=== PATIENT | female | born 1955 | race Caucasian/White ===

== ENCOUNTER → 2025-06-15 07:55 | Outpatient (REF) | payer MEDICARE, SELFPAY | LOC: WOUND 07:55 | PROVIDERS: ATTENDING PHYSICIAN Surgery; FAMILY PHYSICIAN Internal Medicine | DX: L97.312 Non-pressure chronic ulcer of right ankle with fat layer exposed (principal); L97.512 Non-pressure chronic ulcer of other part of right foot with fat layer exposed; L89.622 Pressure ulcer of left heel, stage 2; D75.89 Other specified diseases of blood and blood-forming organs; D47.3 Essential (hemorrhagic) thrombocythemia; I10 Essential (primary) hypertension; I73.9 Peripheral vascular disease, unspecified; I87.2 Venous insufficiency (chronic) (peripheral); Z86.73 Personal history of transient ischemic attack (TIA), and cerebral infarction without residual deficits; Z79.64 Long term (current) use of myelosuppressive agent | CPT/HCPCS: 99204 ==

== ENCOUNTER 2025-07-29 14:31 | Inpatient (IN) | payer MEDICARE, SELFPAY ==
[2025-07-29] VITALS (14 sets, daily range): BP systolic 90–122; BP diastolic 45–62; BMI 30.4
[2025-07-29] MEDS: LR 1000 IV (12:35)
--- NOTE | 2025-07-29 12:54 | ED.GENMED ---
History of Present Illness
General
Chief Complaint: Weakness
Time Seen by Provider: 07/29/25 12:08
History of Present Illness
History of Present Illness:
70-year-old female presents to the emergency department for evaluation of generalized weakness. She states that after developing a significant right lower leg ulcerated wound as a result of taking hydroxyurea, she was taking 'large amounts' of
ibuprofen to manage her pain. She states she was taking at least 600 mg every 4 hours for several weeks or more than 1 month. She also notes dark stools today. Denies any recent fevers or night sweats. She saw wound care on 1 occasion for the
ulcerated wound but declined follow-up thereafter. Denies abdominal pain, nausea, or vomiting.
Past History
Past History
ED Past Medical History: None
Social History
Tobacco: Non-smoker
Alcohol: None
Review of Systems
Review of Systems
Allergies reviewed?: Yes
All Other Systems: ROS reviewed and negative except as documented in HPI and ROS
Phy Exam
Physical Exam
Physical Exam:
GEN: Generally pale, no immediate distress
HEENT: Oral mucosa moist, no scleral icterus
Cardiac: Tachycardic, regular; high pitched systolic murmur heard throughout
Lung: No respiratory distress, no tachypnea, lungs clear to auscultation
Abdomen: Soft, grossly nontender
MSK: No gross deformity or injuries
Skin: Generally pale, no jaundice. Large circumferential ulceration with purulent discharge and malodor to the right lower leg extending toward the heel
Neuro: AO x3, moves all extremities freely
Psych: Calm, cooperative
Course
Orders/Labs/Results
Orders:
Orders
07/29/25
Electrocardiogram (*1) Stat
Reason for Study: Chest Pain
Comment: ALREADY DONE
07/29/25 12:20
Lactated Ringers [Lr] 1,000 ml IV BOLUS
07/29/25 12:33
Type+Screen Urgent
Complete Blood Count/With Diff Urgent
Lactic Acid Q4H
Comment: CANCEL 2nd LACTIC ACID IF 1st LACTIC ACID IS LESS THAN 2
Blood Culture Q30M
IGNACIO Source: Blood/Venous
Specimen Description:
Blood Culture Q30M
IGNACIO Source: Blood/Venous
Specimen Description:
07/29/25 12:34
Comprehensive Metabolic Panel Urgent
Prothrombin Time Urgent
07/29/25 13:24
Pantoprazole [Protonix IV] 80 mg IV NOW STA
07/29/25 13:30
Pantoprazole 80 mg/100 ml Nss [Protonix] 80 mg in 100 ml IV Q10H
07/29/25 13:32
Blood Bank Products [* Blood Bank Products] Urgent
Blood Bank Products: *Packed RBC Leuko(PRBC's)
Quantity: 2
Transfuse Today: Yes
Reason: Anemia
07/29/25 13:54
Admit/Transfer Patient As Directed
Co-Sign Provider:
Level of Care: Inpatient admission
Assign to:: Telemetry
Physician / Group: Hector
Diagnosis: GI Bleed
Reason for Telemetry: Arrhythmia
Date to Stop Telemetry: 08/01/25
Time to Stop Telemetry: 11:00
Reason for Hospitalization: IVFs, Blood transfusion
Expected length of stay greater than two midnights?: Yes
ELOS- Estimated Length of Stay in days: 3
I certify the patient meets the requirements for IP care: Yes
PRN Pain Medication Management As Directed
May give lesser potent ordered pain med per pt: Yes
preference::
Protocol:: Medication orders for pain may be administered in a
manner that supports deferring to patient preference
when the pt is:
- Requesting an ordered lesser potent pain medication.
Least to most potent pain medications are defined
as: acetaminophen < NSAID < tramadol < opioids
(morphine, oxycodone, hydromorphone).
- Requesting a lesser dose of the same medication IF
ORDERED.
- Requesting a less intrusive route of administration
if both routes are prescribed by the provider (PO <
IV).
07/29/25 13:55
Code Status As Directed
Resuscitation Status: Full Code
07/29/25 16:30
Lactic Acid Q4H
Comment: CANCEL 2nd LACTIC ACID IF 1st LACTIC ACID IS LESS THAN 2
08/01/25 11:00
DC Protocol for Telemetry ONCE
Abnormal Lab Results
07/29/25 07/29/25
12:33 12:34
WBC 21.7 H 10^3/uL
(4.8-10.8)
RBC 2.06 L 10^6/uL
(4.20-5.40)
Hgb 7.5 L g/dL
(12.0-16.0)
Hct 21.6 L %
(37.0-47.0)
MCV 104.9 H fL
(81.0-99.0)
MCH 36.4 H pg
(27.0-31.0)
RDW 15.6 H %
(11.5-14.5)
MPV 12.9 H fL
(7.4-10.4)
Abs Immat Gran (auto) 0.7 H 10^3/uL
(0-0.05)
Absolute Neuts (auto) 18.3 H 10^3/uL
(1.4-6.5)
Absolute Monos (auto) 1.0 H 10^3/uL
(0.1-0.6)
Immature Gran % 3.0 H %
(0-0.5)
Neutrophils % 84.4 H %
(42.2-75.2)
Lymphocytes % 6.6 L %
(20.5-51.1)
PT 14.7 H Sec
(11.4-14.6)
Sodium 132 L mmol/L
(135-145)
Carbon Dioxide 20 L mmol/L
(22-30)
BUN 97 H mg/dl
(7-17)
Creatinine 1.5 H mg/dL
(0.6-1.0)
Glucose 121 H mg/dl
(70-99)
Total Protein 6.0 L g/dl
(6.3-8.2)
07/29/25 12:33
07/29/25 12:34
Vital Signs
Initial and Last Documented VS:
Initial Vital Signs
Temp Pulse Resp BP Pulse Ox
97.5 F 115 16 90/55 100
07/29/25 11:29 07/29/25 11:29 07/29/25 11:29 07/29/25 11:29 07/29/25 11:29
Last Documented Vital Signs
Temp Pulse Resp BP Pulse Ox
97.5 F 100 14 95/51 99
07/29/25 11:29 07/29/25 14:15 07/29/25 14:15 07/29/25 14:09 07/29/25 14:15
MDM/Problems Addressed
MDM/Problems Addressed:
Patient most likely has gastritis or peptic ulcer disease secondary to excess NSAID use resulting in severe anemia. Hemoglobin is 7.5 markedly decreased from her baseline due to polycythemia, severely elevated BUN is in keeping with upper GI bleed.
PPIs and blood transfusion initiated, she will require hospitalization for further management. In regards to her right lower extremity wound it does appear to be malodorous and poorly treated however no overt signs of cellulitis are noted at this
time
Comment
Comment:
EKG independently interpreted by me shows normal sinus rhythm at a rate of [address] changes concerning for ischemia, patient motion artifact limits interpretation inferiorly
*Pulse Oximetry
SaO2: 100
Oxygen Mode of Delivery: Room air
Patient hypoxic: no
*Critical Care Note
Total Time (30-74mins, 75-104mins- exclusive of procedures): 40 minutes
comment:
Critical care time: 40 minutes
Critical care time was exclusive of: Separately billable procedures, treating other patients, and teaching time
Critical care was necessary to treat or prevent imminent or life-threatening deterioration of the following conditions: Blood loss anemia
Critical care time spent personally by me on the following activities:
[x] Review of old charts
[x] Obtaining history from patient or surrogate
[x] Ordering and review of the laboratory studies
[x] Ordering and review of radiographic studies
[x] Ordering and performing treatments and interventions
[x] Patient patient's response to treatment
[x] Development of treatment plan with patient or surrogate
ED Attending Note
-
Portions of this chart may have been created with voice recognition software.� Occasional wrong word or��sound alike� substitutions may have occurred due to the inherent limitations of voice recognition software.
Discharge Plan
Departure
Patient Disposition: Admit
Date of Disposition: 07/29/25
Time of Disposition: 13:32
Admit to: Med/Surg
Presentation/result/management discussed w/ accepting MD/DO: Hospitalist
Discharge Problem:
Acute upper gastrointestinal hemorrhage, Acute blood loss anemia
Prescriptions:
No Action
aspirin 81 mg Tablet,Delayed Release (Dr/Ec)
81 mg PO DAILY Qty: 0 0RF
chlorthalidone 25 mg Tablet
25 mg PO DAILY
anagrelide 1 mg Capsule
1 mg PO Q12H
lisinopril 40 mg Tablet
40 mg PO DAILY
Referrals:
Ofelia Mistry DO [Family Provider, Family Practice]
Interventions
Interventions:
*General Assessment Last Done: 07/29/25 13:01
*ED- Fall Risk Assessment Last Done: 07/29/25 13:01
ED- Cardiac Assessment Last Done: 07/29/25 13:01
ED- Neurological Assessment Last Done: 07/29/25 13:01
ED- Pulmonary Assessment Last Done: 07/29/25 13:01
Discharge Date and Time
Print Language: LATVIAN
[2025-07-29 13:03] LABS: Hematocrit 21.6 % (37.0-47.0); Hemoglobin 7.5 g/dL (12.0-16.0); Mean Corp Hgb Conc. 34.7 g/dL (33.0-37.0); Mean Corpuscular Volume 104.9 fL (81.0-99.0); Nucleated Red Blood Cells % 0 %; Platelet Count 194 10^3/uL (130-400); Red Cell Dist. Width 15.6 % (11.5-14.5)
[2025-07-29 13:15] LABS: INR 1.10; PT 14.7 Sec (11.4-14.6)
[2025-07-29 13:20] LABS: ALT (SGPT) 15 U/L (0-35); AST (SGOT) 16 U/L (14-36); Albumin 3.5 g/dl (3.5-5.0); Alkaline Phosphatase 41 U/L (38-126); Blood Urea Nitrogen 97 mg/dl (7-17); Calcium 9.5 mg/dl (8.4-10.2); Carbon Dioxide 20 mmol/L (22-30); Chloride 102 mmol/L (98-107); Glucose 121 mg/dl (70-99); Potassium 4.0 mmol/L (3.5-5.1); Sodium 132 mmol/L (135-145); Total Protein 6.0 g/dl (6.3-8.2); eGFR 37.26
--- NOTE | 2025-07-29 13:38 | HPS.HSE ---
Addendum entered and electronically signed by Chilango Young MD 07/29/25 15:15:
This is an addendum to the H&P written by Radha lAdana on 07/29/2025. �Patient seen and examined independently with PA.
70-year-old female past medical history of hypertension, polycythemia vera, presenting with generalized weakness. �She has been taking a lot of ibuprofen due to wound on her right lower extremity secondary to hydroxyurea. Hydroxyurea was stopped in
the summer.� With dark stools today. �No abdominal pain. Did have 1 episode of vomiting which as red but patient taking cranberry juice.�
Blood pressure 90/55. �Heart rate 115.
Wound on right lower extremity may potentially require debridement.�
Labs show leukocytosis 21. �Hemoglobin of 7.5 from 18.6 in 2021.
Labs show creatinine of 1.5.
Patient with upper GI bleeding likely secondary to peptic ulcer from significant NSAID use. �DARIUS secondary to NSAID use.� NPO. Stop ibuprofen and lisinopril. �2 unit PRBC transfusion. �Protonix drip. �GI consulted. �Check iron studies. �IV fluids.�
Also with wound right lower extremity secondary to hydroxyrea. Wound care consulted to see if debridement needed.�
Original Note:
Family Physician
-
Family Physician: Ofelia Mistry DO
Chief Complaint
-
Weakness
History of Present Illness
Patient is a 70 y/o female past medical history of hypertension, polycythemia and thrombocytosis who presents with generalized weakness. Work-up in the emergency department revealed a significant drop in her hemoglobin from 18 in 2021 to 7.5 today.
Patient report dark colored stools for the past few days. She notes an episodes of vomiting this morning which she described as reddish in color which she attributed to cranberry juice. She states she has been taking large amount of NSAIDs due a
pain ulcer on the right leg due hydroxyurea. She denies any prior history of GI bleed and denies prior upper endoscopy or colonoscopy.
Medical History
Past Medical History
Past Medical History: Reports Other
Additional Past Medical History:
Essential Hypertension
Polycythemia
Thrombocytosis
Past Surgical History: Reports None
Social History
Tobacco: Non-smoker
Alcohol: Other (Very rare per patient)
Family History
Family History: Not pertinent
Allergies / Home Medications
Allergies reflects when Allergies were last updated in [employer].
Home Medications with original date entered in [employer]
Allergy/Medication List:
Allergies
Allergy/AdvReac Type Severity Reaction Status Date / Time
hydroxyurea Allergy ulcers Verified 07/29/25 11:38
Home Medications
aspirin 81 mg tablet,delayed release 81 mg PO DAILY #0 tabs 08/28/22
anagrelide 1 mg capsule 1 mg PO Q12H 07/29/25
chlorthalidone 25 mg tablet 25 mg PO DAILY 07/29/25
lisinopril 40 mg tablet 40 mg PO DAILY 07/29/25
Review of Systems
-
A 12 point ROS was completed and negative except as noted: Yes
Constitutional: Denies Fever or Chills
Respiratory: Denies Cough or Trouble Breathing
Cardiac: Denies Chest Pain, Palpitations or Syncope
Abdomen/GI: Reports Nausea, Vomiting and Black Stools; Denies Abdominal Pain
Physical Exam
Vital Signs
Vital Signs
Temp Pulse Resp BP Pulse Ox
97.5 F 115 16 90/55 100
07/29/25 11:29 07/29/25 11:29 07/29/25 11:29 07/29/25 11:29 07/29/25 12:56
Physical Exam
General: Comfortable, Conversant and Other (Appears very pale)
HEENT: Anicteric and Moist mucous membranes
Respiratory: Clear and Non Labored Respirations
Cardiac: S1/S2, Regular Rhythm and Murmur
GI: Soft and Non Tender
Musculoskeletal: No Clubbing and No Cyanosis
Skin: Warm, Dry and Other (RLE ankle/calf wrapped in large amount of [place]; Left heel with dressing in place)
Neuro: Awake, Alert and Nonfocal/grossly intact
Psych: Calm
Laboratory Results
-
07/29/25 12:33
07/29/25 12:34
Laboratory Results
PT 14.7 Sec (11.4-14.6) H 07/29/25 12:34
INR 1.10 07/29/25 12:34
Lactic Acid 1.5 mmol/L (0.7-2.0) 07/29/25 12:33
Total Bilirubin 0.4 mg/dl (0.2-1.3) 07/29/25 12:34
AST 16 U/L (14-36) 07/29/25 12:34
ALT 15 U/L (0-35) 07/29/25 12:34
Alkaline Phosphatase 41 U/L (38-126) 07/29/25 12:34
Data Reviewed
-
Lab Data: Labs Reviewed by me
Old Records: Reviewed
Impression/Plan
-
Symptomatic Acute Blood Loss Anemia secondary to GI Bleed
-Check iron studies, vitamin b12 and folic acid
-Transfuse 2 units PRBCs
GI Bleed likely upper in nature secondary to NSAID use
-Consult GI
-Continue NPO
-Continue Protonix drip
Acute Kidney Injury secondary to NSAIDs and hypovolemia
-Continue IVFs
-Hold chlorthalidone and lisinopril
Cardiac Murmur
-Check Echocardiogram
Hydroxyurea Induced Ulcer
-Consult Wound Care
Polycythemia / Thrombocytosis
-Patient previously on hydroxyurea which was stopped due to ulcers
-Hold anagrelide and aspirin
-Monitor counts
DVT proph: SCDs
Code Status: Full Code
--- NOTE | 2025-07-29 14:22 | CON.GI ---
Addendum entered and electronically signed by Kecia Banegas MD 07/29/25 19:47:
I saw and examined the patient.
The medical records custodian's note was reviewed and I agree with the note.
dark stool / acute anemia / elevated BUN/ NSAIDs use concern for UGI bleeding - etiology gastritis vs PUD vs esophagitis etc. No prior EGD/ colonoscopy
polycythemia ( baseline hb results not available )
leg ulcer
leucocytosis
plan
patient is agreeable for EGD in am. NPO after MN
continue PPI drip for now
monitor H/H
avoid NSAIDs
Original Note:
Consultation
-
Date/Time Consultation Requested: 07/29/2025
Date/Time Consultation Performed: 07/29/2025
Requesting Provider: Radha Toscano
Performing Provider: Kecia Banegas
Reason for Consultation: Anemia, concern for GI bleed
Medical History
Chief Complaint / HPI
Chief Complaint: Fatigue, dark stools
History of Present Illness:
Shayy is a 70-year-old female with a past medical history of hypertension, polycythemia (treated as outpatient with Dr. Lott), hyperlipidemia who presents to the emergency department for evaluation of generalized weakness and dark stools
for the past 2 days.
Over the past several months she developed a right lower leg ulcerated wound as a result of taking hydroxyurea for which she was taking at least 600 mg of ibuprofen every 4 hours for several weeks to manage her pain. She saw her oncologist
Kaylie on Tuesday 07/24 and stopped hydroxyurea. She notes 1 episode of vomiting which was dark red, however she had been drinking cranberry juice for concerns of renal function secondary to hydroxyurea she had also been drinking a dragon fruit
beverage from [employer]. Bowel movements over the last few days have been dark brown/black, small-volume, liquid in consistency, roughly 3-4 times per day. Normal bowel movements prior to this at 1-2 times per day, well-formed, easy to pass,
nonbloody. She also reports a decreased appetite over the last 2 days since the dark liquid bowel movement started. She does not report any palpitations, lightheadedness, dizziness, melenic stools, fevers, chills, abdominal pain, GERD-like
symptoms or bright red blood per rectum. She has no surgical history. She has never had an episode of dark stools like this before.
She has never had an endoscopy or colonoscopy. There is an occasional drinker with no known history of liver disease.
Patient hypotensive 90s/50s, tachycardic, afebrile, leukocytosis on admission 21.7 with left shift, hemoglobin 7.5, macrocytosis with MCV 105, platelet count 194, elevated BUN 97, creatinine 1.5, lactate wnl. Given 1 L IV bolus lactated Ringer's,
80 mg IV Protonix and started on Protonix drip. Ferritin, folate, iron, TIBC, B12 ordered and pending.
On exam she says she feels fine, however looks pale. She has not had any new episodes of vomiting or diarrhea since admission to the ED. Only complaint at this time is pain in the right lower extremity ulcer, which is bandaged at this time.
Past Medical History
Past Medical History: Other (See HPI)
Past Surgical History: None
Social History
Tobacco: Non-Smoker
Alcohol: Other (Rare)
Drug: None
Living: With Family
Family History
Family History: Reviewed & Not Pertinent
Allergies / Home Medications
Allergy/AdvReac Type Severity Reaction Status Date / Time
hydroxyurea Allergy ulcers Verified 07/29/25 11:38
�Medication �Instructions �Recorded
aspirin 81 mg tablet,delayed 81 mg PO DAILY #0 tabs 08/28/22
release
anagrelide 1 mg capsule 1 mg PO Q12H 07/29/25
chlorthalidone 25 mg tablet 25 mg PO DAILY 07/29/25
lisinopril 40 mg tablet 40 mg PO DAILY 07/29/25
Review of Systems
-
History Source: Patient and Family
All other systems: A 12 pt ROS was Negative except as stated above in HPI
Vital Signs
Temp Pulse Resp BP Pulse Ox
97.5 F 100 14 95/51 99
07/29/25 11:29 07/29/25 14:15 07/29/25 14:15 07/29/25 14:09 07/29/25 14:15
Physical Exam
Exam
General: Well Developed, Well Nourished, No Apparent Distress, Comfortable and Other (Pale)
HEENT: Normocephalic, Anicteric, Moist Mucous Membranes and Atraumatic
Respiratory: Clear and Non Labored Respirations; Negative Wheezes, Rales or Rhonchi
Cardiac: S1/S2, Regular Rhythm and Murmur
Breast: Deferred by me
GI: Soft, Non Tender, Non Distended and Normal Bowel Sounds
Rectal: Deferred by Provider
Musculoskeletal: No Clubbing, No Cyanosis and No Edema
Skin: Warm and Dry
Neuro: AO x 3
Psych: Calm
Results
WBC 21.7 10^3/uL (4.8-10.8) H 07/29/25 12:33
Hgb 7.5 g/dL (12.0-16.0) L 07/29/25 12:33
Hct 21.6 % (37.0-47.0) L 07/29/25 12:33
MCV 104.9 fL (81.0-99.0) H 07/29/25 12:33
Plt Count 194 10^3/uL (130-400) 07/29/25 12:33
Absolute Neuts (auto) 18.3 10^3/uL (1.4-6.5) H 07/29/25 12:33
PT 14.7 Sec (11.4-14.6) H 07/29/25 12:34
INR 1.10 07/29/25 12:34
Sodium 132 mmol/L (135-145) L 07/29/25 12:34
Potassium 4.0 mmol/L (3.5-5.1) 07/29/25 12:34
Chloride 102 mmol/L (98-107) 07/29/25 12:34
Carbon Dioxide 20 mmol/L (22-30) L 07/29/25 12:34
BUN 97 mg/dl (7-17) H 07/29/25 12:34
Creatinine 1.5 mg/dL (0.6-1.0) H 07/29/25 12:34
Calcium 9.5 mg/dl (8.4-10.2) 07/29/25 12:34
Total Bilirubin 0.4 mg/dl (0.2-1.3) 07/29/25 12:34
AST 16 U/L (14-36) 07/29/25 12:34
ALT 15 U/L (0-35) 07/29/25 12:34
Alkaline Phosphatase 41 U/L (38-126) 07/29/25 12:34
Diagnostic Image Results:
Prior GI Procedures:
EGD:
Colonoscopy:
Assessment / Plan
-
Shayy is a 70-year-old female with a past medical history of hypertension, polycythemia (treated as outpatient with Dr. Lott), hyperlipidemia who presents to the emergency department for evaluation of generalized weakness and dark stools
for the past 2 days following approximately 1 month of daily chronic NSAID use.
#Acute blood loss anemia
#Upper GI bleed
#Dark stools
Etiology of upper GI bleed most likely result of bleeding gastric/duodenal ulcer secondary to chronic NSAID vs. small bowel angioectasia vs. other
- Elevated BUN, hemoglobin 7.5 -- patient reports that she had recent lab work done with Dr. Lott, however not in our records and unable to obtain from [facility]
- Type and screen obtained
- 2 large-bore IVs, s/p 1 L LR fluid bolus -- if BPs remain soft, would give another 1 L bolus
- Agree to continue with IV PPI drip
- Continue to trend H&H -- transfuse for hemoglobin <7, platelets less than 20,000, platelets less than 50,000 with signs of active bleeding
- Repeat H&H if signs of active bleeding
- Continue to avoid all NSAIDs
Patient is currently hemodynamically stable without signs of overt bleeding at this time. If active bleeding recurs can consider CTA imaging. Otherwise, will schedule for EGD with potential biopsies tomorrow.
GI will continue to follow
-
-
Thank you for consultation and allowing me to participate in the patient's care. Please call the manager control GI physician during the after hours with any questions or concerns.
[2025-07-29] MEDS: PROTONIX 100 IV ×2 (14:23→23:39)
[2025-07-29] MEDS: PROTONIX IV 80 MG IV (14:23)
[2025-07-29 14:55] LABS: Iron 71 ug/dl (37-170)
[2025-07-29 15:04] LABS: Total Iron Binding Capacity 272 ug/dl (265-497)
[2025-07-29 15:29] LABS: Ferritin 127.0 ng/ml (11.1-264.0)
[2025-07-29 16:00] LABS: Folate 9.7 ng/ml (2.76-20); Vitamin B12 476 pg/ml (239-931)
--- NOTE | 2025-07-29 16:05 | CM ---
CM reviewed chart and met with pt bedside in ED. Pt lives with RANDY Harrington in one story home, 3 [address].
Independent in ADLs, personal care and ambulation at baseline. Does have non healing wound R lower leg, was seen in Wound Care but did not follow up.
Confirms prescription coverage.
No hx VN or SNF.
PCP: Ofelia Mistry
Pharmacy: [facility]
Anticipate discharge home, CM will continue to follow for any discharge planning needs.
[2025-07-29] MEDS: NSS 1000 IV (17:23)
--- NOTE | 2025-07-29 18:24 | PTCARENOTE ---
Patient received from ED at 1630 awake and alert. Reports feeling weak at home . Diet is sips of clears. Tolerates ice chips. Has Protonix iv infusing as ordred and 1 unit Prbc's infusing without difficulty, tolerating well.
[2025-07-30] VITALS (9 sets, daily range): BP systolic 101–129; BP diastolic 47–85
[2025-07-30 02:03] LABS: Hematocrit 21.6 % (37.0-47.0); Hemoglobin 7.5 g/dL (12.0-16.0)
[2025-07-30] MEDS: PROTONIX 100 IV ×2 (07:39→21:38)
[2025-07-30] MEDS: NSS 1000 IV ×2 (07:40→21:38)
[2025-07-30 09:42] LABS: Hematocrit 27.9 % (37.0-47.0); Hemoglobin 9.6 g/dL (12.0-16.0); Mean Corp Hgb Conc. 34.4 g/dL (33.0-37.0); Mean Corpuscular Volume 95.9 fL (81.0-99.0); Platelet Count 145 10^3/uL (130-400); Red Cell Dist. Width 19.0 % (11.5-14.5)
--- NOTE | 2025-07-30 11:20 | WOUNDNOTE ---
R ANKLE/CALF (POSTERIOR)
--- NOTE | 2025-07-30 11:20 | WOUNDNOTE ---
L 3RD TOE
--- NOTE | 2025-07-30 11:20 | WOUNDNOTE ---
LE'S (POSTERIOR)/HEELS
--- NOTE | 2025-07-30 11:24 | WOUNDNOTE ---
[facility] RN note: Patient admitted with GI bleed. Patient lives with her domestic partner.
See H&P for complete history.
PMH: HTN, polycythemia vera, RLE wound for months d/t hydroxyurea which was stopped during the summer.
Wound Location and type/assessment: Patient admitted with: deep dermal ulcers RLE and L heel. Scabbed lesions on R great and L 2nd dorsal toe. +Palpable pedal pulses. Trace LLE edema. +1 RLE edema. R calf ulcers tender. +Pseudomonas odor from RLE
wound drainage.
Appetite: states she is getting hungry.
Pressure redistribution devices in place: [employer] Accum[employer]. Patient can turn slowly in bed herself. She ambulates short distances.
Plan: L heel and RLE dressing changed. Heels off bed with pillow and air chair cushion. Instructed patient heel elevation, pressure injury prevention measures. Discussed wound care and suggested she follow up at wound care center. Patient stated
she does her own wound care at home with a collagen wrap.
Will confirm orders with Dr. Spence and discussed with DHIRAJ Robison.
Care plan to be updated and will follow as needed.
Note to case management requested for discharge: VN if qualifies.
Recommend follow up at wound care center upon discharge.
[2025-07-30 11:25] LABS: Blood Urea Nitrogen 57 mg/dl (7-17); Calcium 8.9 mg/dl (8.4-10.2); Carbon Dioxide 22 mmol/L (22-30); Chloride 110 mmol/L (98-107); Estimated Creatinine Clearance 47 ml/min; Glucose 97 mg/dl (70-99); Potassium 3.8 mmol/L (3.5-5.1); Sodium 138 mmol/L (135-145); eGFR 54.06
--- NOTE | 2025-07-30 11:25 | WOUNDNOTE ---
[facility] RN note: Patient admitted with GI bleed. Patient lives with her domestic partner.
See H&P for complete history.
PMH: HTN, polycythemia vera, RLE wound for months d/t hydroxyurea which was stopped during the summer.
Wound Location and type/assessment: Patient admitted with: deep dermal ulcers RLE and L heel. Scabbed lesions on R great and L 3rd dorsal toe. +Palpable pedal pulses. Trace LLE edema. +1 RLE edema. R calf ulcers tender. +Pseudomonas odor from RLE
wound drainage.
Appetite: states she is getting hungry.
Pressure redistribution devices in place: [employer] Accumax. Patient can turn slowly in bed herself. She ambulates short distances.
Plan: L heel and RLE dressing changed. Protective adaptic and gauze applied to R great toe. Heels off bed with pillow and air chair cushion. Instructed patient heel elevation, pressure injury prevention measures. Discussed local wound care with
patient and suggested she follow up at wound care center. Patient stated she does her own wound care at home with a collagen wrap.
Will confirm orders with Dr. Spence and discussed with DHIRAJ Robison.
Care plan to be updated and will follow as needed.
Note to case management requested for discharge: VN if qualifies.
Recommend follow up at wound care center upon discharge.
[2025-07-30] MEDS: NSS IV (11:39)
--- NOTE | 2025-07-30 11:47 | W.PN.HOSP.TC ---
Today's Communication/Plan
-
Continue with PPI drip for now
Continue IV fluids
GI following
trend hgb
Assessment / Plan
Assessment / Plan
General: Comfortable, Conversant and Other (Appears pale)
HEENT: Anicteric and Moist mucous membranes
Respiratory: Clear and Non Labored Respirations
Cardiac: S1/S2, Regular Rhythm and Murmur
GI: Soft and Non Tender
Musculoskeletal: trace edema b/l LE
Skin: Warm, Dry and Other (RLE ankle/calf wrapped in large amount of [place]; Left heel with dressing in place)
Neuro: Awake, Alert and Nonfocal/grossly intact
Psych: Calm
Symptomatic Acute Blood Loss Anemia secondary to GI Bleed
- Status post blood transfusion. Trend hemoglobin.
- Per outpatient records patient hemoglobin was 10.1 on 07/22/2025
Acute upper gastrointestinal bleeding likely secondary to NSAID usage
- Status post endoscopy which showed grade a esophagitis. Small amount of residual food in the stomach. Oozing duodenal ulcer with visible vessel. H injected. Treated with bipolar cautery and hemostatic spray applied. 3 nonbleeding duodenal
ulcer with no stigmata of bleeding.
- Plan to continue with current n.p.o. status
- Continue Protonix drip
- IV fluids
- May require repeat endoscopy inpatient versus outpatient but will defer to gastroenterology.
Acute Kidney Injury secondary to NSAIDs and hypovolemia
-Continue IVFs
-Hold chlorthalidone and lisinopril. Creatinine downtrending.
Cardiac Murmur
-? In the setting of anemia
- Echo with normal ventricular systolic function. EF 60 to 65%. Compared to previous report 09/09 no significant change.
Hydroxyurea Induced Ulcer
-Consult Wound Care
Polycythemia / Thrombocytosis
-Patient previously on hydroxyurea which was stopped due to ulcers
-Hold anagrelide and aspirin
-Monitor counts
-Follows with [facility]
DVT proph: SCDs if able to tolerate in the setting of gastrointestinal bleeding
Code Status: Full Code
Discussed with GI
Anticipated Discharge: > 48 hours
Subjective/Interval History
-
Date of Service: July 30, 2025
States of abdominal discomfort
Denies any nausea or vomiting
Objective Data
-
Labs:
Laboratory Results
07/30/25 07/30/25 07/30/25
01:58 08:57 08:57
WBC 16.1 H
Hgb 7.5 L 9.6 L D Cancelled
Hct 21.6 L 27.9 L
Plt Count
Sodium
Potassium
Chloride
Carbon Dioxide
BUN
Creatinine
Glucose
Calcium
07/30/25 07/30/25
08:57 17:45
WBC
Hgb Pending
Hct Cancelled Pending
Plt Count 145 D
Sodium 138
Potassium 3.8
Chloride 110 H
Carbon Dioxide 22
BUN 57 H
Creatinine 1.1 H
Glucose 97
Calcium 8.9
Vital Signs:
Vital Signs
Temp Pulse Resp BP Pulse Ox
97.9 F 100 18 119/85 97
07/30/25 11:46 07/30/25 11:46 07/30/25 11:46 07/30/25 11:46 07/30/25 11:46
I&O
07/29/25 07/30/25 07/31/25
06:59 06:59 06:59
Intake Total 500 / 500
Balance 500 / 500
Data Reviewed
-
Total Time Spent with Patient (in minutes): 55
--- NOTE | 2025-07-30 15:29 | PN.CDI ---
CDI
- -
CDI:
Physician Documentation Request
Admit Date: 07/29/25 14:31
Dear Doctor Prashant,
Clinical Indicators:
Patient admitted with GI bleed.
07/30 PN, 'Acute Kidney Injury secondary to NSAIDs and hypovolemia'
IVF: LR 1 L bolus x 1, NSS
Sodium level on admission:
07/29/25
12:34
Sodium 132 L
Based on the above, could you clarify in the progress notes, the appropriate diagnosis, if significant, that supports the above abnormalities and additional evaluation, monitoring and/or treatment rendered:
Hyponatremia
Abnormal lab value, clinically insignificant
Other, please specify
Use of terms such as suspected, likely, concern for, or probable (associated with a specific diagnosis that is being evaluated, monitored, or treated as if it exists) are acceptable and can be coded in the inpatient setting, when documented at the
time of discharge.
Thank you,
MIRA Arroyo RN
CDI Specialist
available via tiger text
Please use your independent medical judgment in providing your response.
[2025-07-30 17:36] LABS: Hematocrit 27.2 % (37.0-47.0); Hemoglobin 9.6 g/dL (12.0-16.0)
--- NOTE | 2025-07-30 20:44 | W.PN.UPDATE ---
Update Note
Progress Note Update
New onset of fever with a temp 100.7. lactic, cbc, ua, covid, blood culture and chest x-ray ordered.
[2025-07-30] MEDS: HYDROPHOR TOPICAL ×2 (21:39→21:45)
[2025-07-30 23:02] LABS: Urine Character Clear (Clear)
[2025-07-30 23:16] LABS: COVID-19 Antigen Negative (Negative)
[2025-07-30 23:55] LABS: Hematocrit 24.8 % (37.0-47.0); Hemoglobin 8.8 g/dL (12.0-16.0); Mean Corp Hgb Conc. 35.5 g/dL (33.0-37.0); Mean Corpuscular Volume 94.3 fL (81.0-99.0); Platelet Count 170 10^3/uL (130-400); Red Cell Dist. Width 19.0 % (11.5-14.5)
[2025-07-31 03:00] VITALS: BP 125/67
--- NOTE | 2025-07-31 03:00 | PTCARENOTE ---
Addendum entered by Caitlin Joiner RN 07/31/25 07:54:
Patient wouldn't assessment of R leg and L heel d/t pain.
Original Note:
Pt with temp of 100.7 with evening vitals. Upon recheck, temp was 100.1. Patient doesn't report any pain or feeling different since having upper endoscopy earlier in the day. Fine crackles heard in the L middle and base. MECHANICAL FACILITIES TECHNICIAN made aware via TT. Labs
and CXR ordered.
Temp did come down as the night progressed. See worklist for vitals.
[2025-07-31] MEDS: PROTONIX IV (05:35)
[2025-07-31 07:15] VITALS: BP 137/68
[2025-07-31] MEDS: NSS 1000 IV ×2 (08:44→19:57)
[2025-07-31] MEDS: PROTONIX 100 IV ×2 (08:44→17:23)
[2025-07-31] MEDS: ZITHROMAX INFUSION 250 IV (09:12)
[2025-07-31 09:24] LABS: Hematocrit 24.9 % (37.0-47.0); Hemoglobin 8.6 g/dL (12.0-16.0); Mean Corp Hgb Conc. 34.5 g/dL (33.0-37.0); Mean Corpuscular Volume 98.0 fL (81.0-99.0); Platelet Count 154 10^3/uL (130-400); Red Cell Dist. Width 18.6 % (11.5-14.5)
[2025-07-31 09:43] LABS: Blood Urea Nitrogen 27 mg/dl (7-17); Calcium 8.5 mg/dl (8.4-10.2); Carbon Dioxide 20 mmol/L (22-30); Chloride 114 mmol/L (98-107); Estimated Creatinine Clearance 57 ml/min; Glucose 101 mg/dl (70-99); Potassium 3.6 mmol/L (3.5-5.1); Sodium 141 mmol/L (135-145); eGFR > 60.00
[2025-07-31 09:44] LABS: Nucleated Red Blood Cells % 0 %
[2025-07-31] MEDS: STERILE WATER FOR INJECTION 10 ML IV (10:17)
[2025-07-31] MEDS: ROCEPHIN 1000 MG IV (10:18)
[2025-07-31 11:20] VITALS: BP 135/64
--- NOTE | 2025-07-31 11:20 | CM ---
CM reviewed chart, patient seen bedside, care ongoing. Patient denies needs at this time. Will follow for VN needs upon d/c. Wound care following patient. CM will continue to follow for all discharge planning needs.
Plan; home no needs, watch for VN needs upon d/c for wound
[2025-07-31] MEDS: HYDROPHOR TOPICAL ×2 (12:31→20:00)
--- NOTE | 2025-07-31 12:31 | PTCARENOTE ---
pt refusing wound care b/l LE despite multiple attempts, encouragement and education. attending notified.
--- NOTE | 2025-07-31 12:48 | W.PN.HOSP.TC ---
Today's Communication/Plan
-
Started on antibiotics.
Not on oxygen.
Trend hemoglobin. Diet per GI
Continue PPI drip for now
Assessment / Plan
Assessment / Plan
General: Comfortable, Conversant and Other (Appears pale),
HEENT: Anicteric and Moist mucous membranes
Respiratory: mild rhonci L>R. Otherwise clear to auscultation on the right side, not tachypneic, able to speak in complete sentences, nonlabored respiration
Cardiac: S1/S2, Regular Rhythm
GI: Soft and Non Tender
Musculoskeletal: trace edema b/l LE
Skin: Warm, Dry and Other (RLE ankle/calf wrapped in mary, Left heel with dressing in place)
Neuro: Awake, Alert and Nonfocal/grossly intact
Psych: Calm
Acute upper gastrointestinal bleeding likely secondary to NSAID usage
- Status post endoscopy which showed grade a esophagitis. Small amount of residual food in the stomach. Oozing duodenal ulcer with visible vessel. H injected. Treated with bipolar cautery and hemostatic spray applied. 3 nonbleeding duodenal
ulcer with no stigmata of bleeding.
- Plan to continue with current n.p.o. status
- Continue Protonix drip
- IV fluids
- May require repeat endoscopy inpatient versus outpatient but will defer to gastroenterology.
- Diet per GI
Symptomatic Acute Blood Loss Anemia secondary to GI Bleed
- Status post blood transfusion. Trend hemoglobin.
- Per outpatient records patient hemoglobin was 10.1 on 07/22/2025
Acute Kidney Injury secondary to NSAIDs and hypovolemia
-Continue IVFs as remains npo.
-Hold chlorthalidone and lisinopril. Creatinine downtrended
Fever likely secondary to pneumonia
- Chest x-ray noted. Started patient azithromycin and ceftriaxone
-COVID-negative follow-up on the blood cultures. Check urine strep antigen
Hydroxyurea Induced Ulcer
-Consult Wound Care. Refusing wound care intermittently.
Polycythemia / Thrombocytosis
-Patient previously on hydroxyurea which was stopped due to ulcers
-Hold anagrelide and aspirin
-Monitor counts
-Follows with [facility]. - Per outpatient records patient hemoglobin was 10.1 on 07/22/2025
DVT proph: SCDs if able to tolerate in the setting of gastrointestinal bleeding
Code Status: Full Code
Anticipated Discharge: > 48 hours
Subjective/Interval History
-
Date of Service: July 31, 2025
Overnight patient spiked a fever
Denies any abdominal pain
Not on oxygen. Denies productive cough.
Objective Data
-
Labs:
Laboratory Results
07/30/25 07/31/25
22:38 08:54
WBC Cancelled 23.1 H
Hgb Cancelled 8.6 L
Hct Cancelled 24.9 L
Plt Count Cancelled 154
Sodium 141
Potassium 3.6
Chloride 114 H
Carbon Dioxide 20 L
BUN 27 H
Creatinine 0.9
Glucose 101 H
Calcium 8.5
Vital Signs:
Vital Signs
Temp Pulse Resp BP Pulse Ox
98.9 F 98 16 135/64 96
07/31/25 11:20 07/31/25 11:20 07/31/25 11:20 07/31/25 11:20 07/31/25 11:20
I&O
07/30/25 07/31/25 08/01/25
06:59 06:59 06:59
Intake Total 500 / 500 1440 / 1440
Output Total 300 / 300
Balance 500 / 500 1140 / 1140
Data Reviewed
-
Total Time Spent with Patient (in minutes): 55
--- NOTE | 2025-07-31 13:48 | PN.CDI ---
CDI
- -
CDI:
Physician Documentation Request
Admit Date: 07/29/25 14:31
Dear Doctor Jordy,
Clinical Indicators:
Patient admitted with GI bleeding and vomiting.
DARIUS present on admission.
WBC trend:
07/29/25 07/30/25 07/30/25
12:33 08:57 23:33
WBC 21.7 H 16.1 H 24.7 H
HR trend:
07/29/25
11:29 07/29/25
14:00 07/29/25
15:00
Pulse 115 100 98
07/30/25
03:58 07/30/25
11:46 07/31/25
07:15
Pulse 97 100 100
Please clarify which of the following most accurately describes the status of the patient's infection:
Sepsis (please specify if POA)
- Systemic manifestations of infection, with 2 or more SIRS criteria which include:
- Fever >100.9 degrees F or hypothermia < 96.8 degrees F
- Leukocytosis - WBC > 12,000 or leukopenia - WBC < 4,000 or > 10% bands
- Tachycardia > 90 beats per minute
- Tachypnea - RR > 20 breaths per minute or PaCO2 , 32mmHg
Source: Merck Manual 2013
Pneumonia Only, Without Systemic Illness
Other
Use of terms such as suspected, likely, concern for, or probable (associated with a specific diagnosis that is being evaluated, monitored, or treated as if it exists) are acceptable and can be coded in the inpatient setting, when documented at the
time of discharge.
Thank you,
MIRA Arroyo RN
CDI Specialist
available via tiger text
Please use your independent medical judgment in providing your response.
--- NOTE | 2025-07-31 14:48 | W.PN.GI.CBS2 ---
Addendum entered and electronically signed by Lesly Durant MD 07/31/25 20:50:
I saw and examined the patient.
The POKER IN or PA's note was reviewed and I agree with the note.
Comment: Patient denies any abdominal pain, nausea or vomiting. Had 1 small greenish/dark bowel movement today
Hemoglobin is stable and BUN is improving
If hemoglobin continues to be stable, will start her on clear liquid diet and advance as tolerated
Currently on Protonix drip, will switch to Protonix IV twice daily tomorrow
Will need outpatient endoscopy follow-up on the duodenal ulcer but if active bleeding, need to do it inpatient
Will follow-up
Original Note:
Today's Communication / Plan
-
As per plan
Assessment / Plan
-
Shayy is a 70-year-old female with a past medical history of hypertension, polycythemia (treated as outpatient with Dr. Lott), hyperlipidemia who presents to the emergency department for evaluation of generalized weakness and dark stools
for the past 2 days following approximately 1 month of daily chronic NSAID use.
Impression:
Upper GI bleed status post EGD 07/30/2025
Duodenal ulcer with visible vessel status status post injection and epi and bipolar cautery, Hemospray
3 nonbleeding duodenal ulcers with no stigmata of bleeding
Acute blood loss anemia
LA grade a esophagitis
Polycythemia/thrombocytosis
Pneumonia, left lower lobe
Plan:
- Continue pantoprazole drip
- Continue NPO, patient still passing melena
- Patient will require repeat EGD, inpatient versus outpatient. After holding anagrelide for 5 days. Last dose 07/29/2025
- Trend hemoglobin
- On antibiotics for pneumonia
- Discussed with RN that if has change in vital signs, abdominal pain, decreased hemoglobin to notify GI.
Subjective
Subjective
Date of Service: July 31, 2025
Patient status post EGD 07/30/2025-> LA grade a esophagitis with no bleeding found in lower third of the esophagus. Small amount of food residue in the stomach. Patulous pylorus. Oozing duodenal ulcer with visible vessel. This was injected
treated with bipolar cautery and hemostatic spray applied. 3 nonbleeding duodenal ulcers with no stigmata of bleeding. Duodenal diverticulum. Patient's hemoglobin was initially 7.5 however transfused 2 units of packed red blood cells. Went up to
9.6 on 07/30/2025. Hemoglobin currently 8.6 today patient's hemoglobin currently 8.6. She did have episodes of melena since EGD. Vital signs stable. BUN improving. Continues on ceftriaxone. She maintains n.p.o. status at present time as well as
Protonix drip. Would continue at present time. Patient diagnosed with left lower lobe pneumonia. On antibiotics.
Objective
Data Reviewed
Laboratory Data:
Laboratory Results
07/31/25 08:54
Laboratory Results
PT 14.7 Sec (11.4-14.6) H 07/29/25 12:34
INR 1.10 07/29/25 12:34
Total Bilirubin 0.4 mg/dl (0.2-1.3) 07/29/25 12:34
AST 16 U/L (14-36) 07/29/25 12:34
ALT 15 U/L (0-35) 07/29/25 12:34
Alkaline Phosphatase 41 U/L (38-126) 07/29/25 12:34
Vital Signs and I&O:
Vital Signs
Temp Pulse Resp BP Pulse Ox
98.9 F 98 16 135/64 96
07/31/25 11:20 07/31/25 11:20 07/31/25 11:20 07/31/25 11:20 07/31/25 11:20
I&O
07/30/25 07/31/25 08/01/25
06:59 06:59 06:59
Intake Total 500 / 500 1440 / 1440
Output Total 300 / 300
Balance 500 / 500 1140 / 1140
Physical Exam
Physical Exam
HEENT: Anicteric
Cardiology: Normal Sinus Rhythm
Pulmonary: Clear
GI: Soft, Non Distended, Non Tender and Normal Bowel Sounds
Extremities: No Edema
Neuro: Non Focal
[2025-07-31 15:17] VITALS: BP 129/70
[2025-07-31 15:33] VITALS: BMI 30.4
[2025-07-31 19:34] VITALS: BP 104/65
[2025-07-31 21:31] LABS: Hematocrit 24.2 % (37.0-47.0); Hemoglobin 8.2 g/dL (12.0-16.0); Mean Corp Hgb Conc. 33.9 g/dL (33.0-37.0); Mean Corpuscular Volume 97.6 fL (81.0-99.0); Nucleated Red Blood Cells % 0 %; Platelet Count 174 10^3/uL (130-400); Red Cell Dist. Width 18.7 % (11.5-14.5)
[2025-08-01] VITALS (9 sets, daily range): BP systolic 127–157; BP diastolic 61–78
[2025-08-01] MEDS: PROTONIX 100 IV ×2 (03:04→16:13)
[2025-08-01] MEDS: NSS 1000 IV ×2 (05:33→17:59)
--- NOTE | 2025-08-01 06:16 | PTCARENOTE ---
Pt refused anything to be done with dressing or R lower leg, other than checking pedal pulse. Patient also refused assessment of L heel/ankle wound. Refused SCDs, CONTACT LENS FLASHING PUNCHER notified via TT. Denied abdominal pain. 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
[2025-08-01] MEDS: ROCEPHIN 1000 MG IV (09:25)
[2025-08-01] MEDS: STERILE WATER FOR INJECTION 10 ML IV (09:26)
[2025-08-01] MEDS: FLUSH (NSS) 2 FLUSH IV (09:27)
[2025-08-01] MEDS: HYDROPHOR TOPICAL ×2 (09:37→19:59)
[2025-08-01 09:57] LABS: Blood Urea Nitrogen 14 mg/dl (7-17); Calcium 7.2 mg/dl (8.4-10.2); Carbon Dioxide 18 mmol/L (22-30); Chloride 119 mmol/L (98-107); Estimated Creatinine Clearance 65 ml/min; Glucose 73 mg/dl (70-99); Potassium 3.0 mmol/L (3.5-5.1); Sodium 144 mmol/L (135-145); eGFR > 60.00
[2025-08-01 10:04] LABS: Hematocrit 20.3 % (37.0-47.0); Hemoglobin 6.8 g/dL (12.0-16.0); Mean Corp Hgb Conc. 33.5 g/dL (33.0-37.0); Mean Corpuscular Volume 100.0 fL (81.0-99.0); Nucleated Red Blood Cells % 0 %; Platelet Count 185 10^3/uL (130-400); Red Cell Dist. Width 18.3 % (11.5-14.5)
--- NOTE | 2025-08-01 12:23 | W.PN.HOSP.TC ---
Today's Communication/Plan
-
transfuse 1u prbc
IV ppi
IVF for now
IV abx
Assessment / Plan
Assessment / Plan
General: Comfortable, Conversant and Other (Appears pale),
HEENT: Anicteric and Moist mucous membranes
Respiratory: mild rhonci L>R. Otherwise clear to auscultation on the right side, not tachypneic, able to speak in complete sentences, nonlabored respiration
Cardiac: S1/S2, Regular Rhythm
GI: Soft and Non Tender
Musculoskeletal: trace edema b/l LE
Skin: Warm, Dry and Other (RLE ankle/calf wrapped in mary, Left heel with dressing in place)
Neuro: Awake, Alert and Nonfocal/grossly intact
Psych: Calm
Acute upper gastrointestinal bleeding likely secondary to NSAID usage
- Status post endoscopy which showed grade a esophagitis. Small amount of residual food in the stomach. Oozing duodenal ulcer with visible vessel. H injected. Treated with bipolar cautery and hemostatic spray applied. 3 nonbleeding duodenal
ulcer with no stigmata of bleeding.
- Plan to continue with current n.p.o. status
- Continue Protonix drip
- IV fluids
- May require repeat endoscopy inpatient versus outpatient but will defer to gastroenterology.
- Diet per GI
Symptomatic Acute Blood Loss Anemia secondary to GI Bleed
- Hemoglobin 6.8 today. . Will transfuse additional unit of PRBC.
- Per outpatient records patient hemoglobin was 10.1 on 07/22/2025
Acute Kidney Injury secondary to NSAIDs and hypovolemia
-Continue IVFs as remains npo.
-Hold chlorthalidone and lisinopril. Creatinine downtrended
Fever likely secondary to pneumonia
- Chest x-ray noted. Started patient azithromycin and ceftriaxone -complete 5d course
-COVID-negative follow-up on the blood cultures. Check urine strep antigen-negative.
Hydroxyurea Induced Ulcer
-Consult Wound Care. Refusing wound care intermittently. Agreed for wound care changes for today
Polycythemia / Thrombocytosis
-Patient previously on hydroxyurea which was stopped due to ulcers
-Hold anagrelide and aspirin
-Monitor counts
-Follows with [facility]. - Per outpatient records patient hemoglobin was 10.1 on 07/22/2025
Hypokalemia
-replete/monitor
DVT proph: SCDs if able to tolerate in the setting of gastrointestinal bleeding
Code Status: Full Code
Anticipated Discharge: > 48 hours
Subjective/Interval History
-
Date of Service: August 01, 2025
denies abd pain
no nausea or vomiting
states had dark brown colored formed BM earlier today
Objective Data
-
Labs:
Laboratory Results
08/01/25
09:09
WBC 17.0 H
Hgb 6.8 L*
Hct 20.3 L*
Plt Count 185
Sodium 144
Potassium 3.0 L
Chloride 119 H
Carbon Dioxide 18 L
BUN 14
Creatinine 0.8
Glucose 73
Calcium 7.2 L
Vital Signs:
Vital Signs
Temp Pulse Resp BP Pulse Ox
99.1 F 100 18 134/66 96
08/01/25 07:00 08/01/25 07:00 08/01/25 07:00 08/01/25 07:00 08/01/25 07:00
I&O
07/31/25 08/01/25 08/02/25
06:59 06:59 06:59
Intake Total 1440 / 1440 480 / 480
Output Total 300 / 300
Balance 1140 / 1140 480 / 480
Data Reviewed
-
Total Time Spent with Patient (in minutes): 55
[2025-08-01] MEDS: KCL 270 MEQ IV (14:36)
[2025-08-01] MEDS: FLUSH (NSS) 1 FLUSH IV (14:37)
--- NOTE | 2025-08-01 15:07 | W.PN.GI.CBS2 ---
Today's Communication / Plan
-
- Continue pantoprazole drip
- Okay for clear liquid diet as BUN continues to be stable though there is drop in hemoglobin. Agree with getting a unit of packed red blood cell.
- Patient will require repeat EGD, inpatient versus outpatient. After holding anagrelide for 5 days. Last dose 07/29/2025
- Trend hemoglobin
- On antibiotics for pneumonia
- Discussed with RN that if has change in vital signs, abdominal pain, decreased hemoglobin to notify GI.
Assessment / Plan
-
Shayy is a 70-year-old female with a past medical history of hypertension, polycythemia (treated as outpatient with Dr. Lott), hyperlipidemia who presents to the emergency department for evaluation of generalized weakness and dark stools
for the past 2 days following approximately 1 month of daily chronic NSAID use.
Impression:
Upper GI bleed status post EGD 07/30/2025
Duodenal ulcer with visible vessel status status post injection and epi and bipolar cautery, Hemospray
3 nonbleeding duodenal ulcers with no stigmata of bleeding
Acute blood loss anemia
LA grade a esophagitis
Polycythemia/thrombocytosis
Pneumonia, left lower lobe
Plan:
- Continue pantoprazole drip
- Okay for clear liquid diet as BUN continues to be stable though there is drop in hemoglobin. Agree with getting a unit of packed red blood cell.
- Patient will require repeat EGD, inpatient versus outpatient. After holding anagrelide for 5 days. Last dose 07/29/2025
- Trend hemoglobin
- On antibiotics for pneumonia
- Discussed with RN that if has change in vital signs, abdominal pain, decreased hemoglobin to notify GI.
Subjective
Subjective
Date of Service: August 01, 2025
Patient without any abdominal pain, she did have 2 bowel movements which were darker this morning but as per patient getting more clear
Hemoglobin did drop to 6.8 but BUN in normal range and hemodynamically stable
Objective
Data Reviewed
Laboratory Data:
Laboratory Results
08/01/25 09:09
Laboratory Results
PT 14.7 Sec (11.4-14.6) H 07/29/25 12:34
INR 1.10 07/29/25 12:34
Total Bilirubin 0.4 mg/dl (0.2-1.3) 07/29/25 12:34
AST 16 U/L (14-36) 07/29/25 12:34
ALT 15 U/L (0-35) 07/29/25 12:34
Alkaline Phosphatase 41 U/L (38-126) 07/29/25 12:34
Vital Signs and I&O:
Vital Signs
Temp Pulse Resp BP Pulse Ox
99.4 F 86 16 136/71 100
08/01/25 14:28 08/01/25 14:28 08/01/25 14:28 08/01/25 14:28 08/01/25 14:28
I&O
07/31/25 08/01/25 08/02/25
06:59 06:59 06:59
Intake Total 1440 / 1440 480 / 480 250 / 250
Output Total 300 / 300
Balance 1140 / 1140 480 / 480 250 / 250
Physical Exam
Physical Exam
GI: Soft, Non Distended and Non Tender
[2025-08-01 18:32] LABS: Hematocrit 25.8 % (37.0-47.0); Hemoglobin 8.8 g/dL (12.0-16.0); Mean Corp Hgb Conc. 34.1 g/dL (33.0-37.0); Mean Corpuscular Volume 93.5 fL (81.0-99.0); Platelet Count 230 10^3/uL (130-400); Red Cell Dist. Width 18.5 % (11.5-14.5)
[2025-08-02] MEDS: NSS 1000 IV ×3 (01:59→22:17)
[2025-08-02] MEDS: PROTONIX 100 IV ×3 (02:07→22:17)
[2025-08-02 03:05] VITALS: BP 130/68
[2025-08-02 07:00] VITALS: BP 145/66
[2025-08-02] MEDS: HYDROPHOR TOPICAL ×2 (08:15→20:14)
[2025-08-02 11:00] VITALS: BP 145/79
[2025-08-02] MEDS: STERILE WATER FOR INJECTION 10 ML IV (11:16)
[2025-08-02] MEDS: ROCEPHIN 1000 MG IV (11:16)
[2025-08-02] MEDS: HYDROPHOR 1 APPLIC TOPICAL (11:32)
--- NOTE | 2025-08-02 11:40 | VATNOTE ---
Vat rounds: left arm +2 edema noted. Primary Rn made aware. recommended us of the left arm to r/o DVT. Will continue to monitor closely.
--- NOTE | 2025-08-02 11:50 | W.PN.HOSP.TC ---
Addendum entered and electronically signed by Valente Spence MD 08/02/25 12:25:
Sepsis secondary to pneumonia unclear of the acuity
Mild hyponatremia
Original Note:
Today's Communication/Plan
-
GI recs for EGD
npo.
IVF
PPI
Wound care
labs pending
Assessment / Plan
Assessment / Plan
General: Comfortable, Conversant and
HEENT: Anicteric and Moist mucous membranes
Respiratory: mild rhonci L>R. Otherwise clear to auscultation on the right side, not tachypneic, able to speak in complete sentences, nonlabored respiration
Cardiac: S1/S2, Regular Rhythm
GI: Soft and Non Tender, non distended, +bs
Musculoskeletal: trace edema b/l LE and LUE edema
Skin: Warm, Dry and Other (RLE ankle/calf wrapped in mary)
Neuro: Awake, Alert and Nonfocal/grossly intact
Psych: Calm
Acute upper gastrointestinal bleeding likely secondary to NSAID usage
- Status post endoscopy which showed grade a esophagitis. Small amount of residual food in the stomach. Oozing duodenal ulcer with visible vessel. H injected. Treated with bipolar cautery and hemostatic spray applied. 3 nonbleeding duodenal
ulcer with no stigmata of bleeding.
- Plan to continue with current n.p.o. status
- Continue Protonix drip
- IV fluids
- May require repeat endoscopy inpatient versus outpatient but will defer to gastroenterology. Plan for repeat endoscopy after 5 days after last dose of anagrelide.
- Diet per GI
Symptomatic Acute Blood Loss Anemia secondary to GI Bleed
- Pending labs from today. Hemoglobin of 8.8 yesterday evening status post units of PRBC.
- Per outpatient records patient hemoglobin was 10.1 on 07/22/2025
Acute Kidney Injury secondary to NSAIDs and hypovolemia
-Continue IVFs as remains npo.
-Hold chlorthalidone and lisinopril. Creatinine downtrended
Fever likely secondary to pneumonia
- Chest x-ray noted. Started patient azithromycin and ceftriaxone -complete 5d course
-COVID-negative follow-up on the blood cultures. Check urine strep antigen-negative.
Hydroxyurea Induced Ulcer
-Consult Wound Care. Refusing wound care intermittently. Agreed for wound care changes for today late in Down syndrome. Discussed with RN.
Polycythemia / Thrombocytosis
-Patient previously on hydroxyurea which was stopped due to ulcers
-Hold anagrelide and aspirin
-Monitor counts
-Follows with [facility]. - Per outpatient records patient hemoglobin was 10.1 on 07/22/2025
Hypokalemia
-replete/monitor
LUE edema
-IV removed. Venous doppler pending
DVT proph: SCDs if able to tolerate in the setting of gastrointestinal bleeding
Code Status: Full Code
Anticipated Discharge: > 48 hours
Subjective/Interval History
-
Date of Service: August 02, 2025
States of brown bowel movements
Denies any abdominal pain
Agreeable for wound care change
Objective Data
-
Labs:
Laboratory Results
08/02/25
11:37
WBC Pending
Hgb Pending
Hct Pending
Plt Count Pending
Sodium Pending
Potassium Pending
Chloride Pending
Carbon Dioxide Pending
BUN Pending
Creatinine Pending
Glucose Pending
Calcium Pending
Vital Signs:
Vital Signs
Temp Pulse Resp BP Pulse Ox
98.9 F 79 18 145/66 99
08/02/25 07:00 08/02/25 07:00 08/02/25 07:00 08/02/25 07:00 08/02/25 07:00
I&O
08/01/25 08/02/25 08/03/25
06:59 06:59 06:59
Intake Total 480 / 480 2049
Balance 480 / 480 2049
[2025-08-02 12:20] LABS: Hematocrit 26.7 % (37.0-47.0); Hemoglobin 9.0 g/dL (12.0-16.0); Mean Corp Hgb Conc. 33.7 g/dL (33.0-37.0); Mean Corpuscular Volume 94.0 fL (81.0-99.0); Nucleated Red Blood Cells % 0 %; Platelet Count 303 10^3/uL (130-400); Red Cell Dist. Width 18.4 % (11.5-14.5)
[2025-08-02 12:32] LABS: Blood Urea Nitrogen 11 mg/dl (7-17); Calcium 8.3 mg/dl (8.4-10.2); Carbon Dioxide 21 mmol/L (22-30); Chloride 114 mmol/L (98-107); Estimated Creatinine Clearance 74 ml/min; Glucose 109 mg/dl (70-99); Potassium 3.6 mmol/L (3.5-5.1); Sodium 141 mmol/L (135-145); eGFR > 60.00
--- NOTE | 2025-08-02 14:40 | W.PN.GI.CBS2 ---
Today's Communication / Plan
-
Plan:
- Continue pantoprazole drip
- Okay for clear liquid diet as BUN continues to be stable though there is drop in hemoglobin. A
For EGD in am
- Trend hemoglobin
- On antibiotics for pneumonia
Assessment / Plan
-
Shayy is a 70-year-old female with a past medical history of hypertension, polycythemia (treated as outpatient with Dr. Lott), hyperlipidemia who presents to the emergency department for evaluation of generalized weakness and dark stools
for the past 2 days following approximately 1 month of daily chronic NSAID use.
Impression:
Upper GI bleed status post EGD 07/30/2025
Duodenal ulcer with visible vessel status status post injection and epi and bipolar cautery, Hemospray
3 nonbleeding duodenal ulcers with no stigmata of bleeding
Acute blood loss anemia
LA grade a esophagitis
Polycythemia/thrombocytosis
Pneumonia, left lower lobe
Plan:
- Continue pantoprazole drip
- Okay for clear liquid diet as BUN continues to be stable though there is drop in hemoglobin. A
For EGD in am
- Trend hemoglobin
- On antibiotics for pneumonia
Subjective
Subjective
Date of Service: August 02, 2025
No abdomina lpain but till with black stool. h/h today stable
Objective
Data Reviewed
Laboratory Data:
Laboratory Results
08/02/25 11:37
08/02/25 11:37
Laboratory Results
PT 14.7 Sec (11.4-14.6) H 07/29/25 12:34
INR 1.10 07/29/25 12:34
Total Bilirubin 0.4 mg/dl (0.2-1.3) 07/29/25 12:34
AST 16 U/L (14-36) 07/29/25 12:34
ALT 15 U/L (0-35) 07/29/25 12:34
Alkaline Phosphatase 41 U/L (38-126) 07/29/25 12:34
Vital Signs and I&O:
Vital Signs
Temp Pulse Resp BP Pulse Ox
98.7 F 76 18 145/79 98
08/02/25 11:00 08/02/25 11:00 08/02/25 11:00 08/02/25 11:00 08/02/25 11:00
I&O
08/01/25 08/02/25 08/03/25
06:59 06:59 06:59
Intake Total 480 / 480 2049
Balance 480 / 480 2049
Physical Exam
Physical Exam
GI: Soft and Non Distended
Rectal: Black
[2025-08-02 15:00] VITALS: BP 145/75
[2025-08-02] MEDS: TYLENOL 650 MG PO (15:24)
[2025-08-02 19:28] VITALS: BP 143/66
[2025-08-02 23:23] VITALS: BP 117/76
[2025-08-03] VITALS (7 sets, daily range): BP systolic 14–160; BP diastolic 71–82
[2025-08-03 06:44] LABS: Hematocrit 25.6 % (37.0-47.0); Hemoglobin 8.5 g/dL (12.0-16.0); Mean Corp Hgb Conc. 33.2 g/dL (33.0-37.0); Mean Corpuscular Volume 94.8 fL (81.0-99.0); Nucleated Red Blood Cells % 0 %; Platelet Count 351 10^3/uL (130-400); Red Cell Dist. Width 18.1 % (11.5-14.5)
[2025-08-03 07:04] LABS: Blood Urea Nitrogen 8 mg/dl (7-17); Calcium 8.0 mg/dl (8.4-10.2); Carbon Dioxide 23 mmol/L (22-30); Chloride 114 mmol/L (98-107); Estimated Creatinine Clearance 74 ml/min; Glucose 97 mg/dl (70-99); Potassium 3.9 mmol/L (3.5-5.1); Sodium 141 mmol/L (135-145); eGFR > 60.00
[2025-08-03] MEDS: NSS 1000 IV ×2 (07:41→18:37)
[2025-08-03] MEDS: PROTONIX 100 IV (07:42)
[2025-08-03] MEDS: HYDROPHOR TOPICAL ×2 (07:45→19:41)
--- NOTE | 2025-08-03 08:25 | VATNOTE ---
vat rounds: left hand and arm with decreased swelling today. patient has generalized edema all through out extremities. will continue to monitor.
[2025-08-03] MEDS: STERILE WATER FOR INJECTION 10 ML IV (09:15)
[2025-08-03] MEDS: ROCEPHIN 1000 MG IV (09:15)
--- NOTE | 2025-08-03 11:13 | W.PN.HOSP.TC ---
Today's Communication/Plan
-
EGD
Chest x-ray
Assessment / Plan
Assessment / Plan
Gen-AAOx3, NAD
HEENT-NC, AT, anicteric, clear oral mm
Neck-supple
CV-reg, no M, +S1/S2
Lungs-clear B/L
Abd-soft, NT, ND
Ext-no edema
Musculoskeletal-no cyanosis, clubbing
Skin-warm and dry
Neuro-grossly non-focal
Psych-calm, cooperative
Acute upper gastrointestinal bleeding -likely secondary to NSAID induced peptic ulcer disease.
- Status post endoscopy which showed grade a esophagitis. Small amount of residual food in the stomach. Oozing duodenal ulcer with visible vessel. H injected. Treated with bipolar cautery and hemostatic spray applied. 3 nonbleeding duodenal
ulcer with no stigmata of bleeding.
- Plan to continue with current n.p.o. status
- Continue Protonix drip
- IV fluids
For repeat endoscopy today as per GI.
Symptomatic Acute Blood Loss Anemia secondary to GI Bleed
Hemoglobin stable, 8.5 today. Has required 3 units PRBC transfusion so far.
- Per outpatient records patient hemoglobin was 10.1 on 07/22/2025
DARIUS - secondary to NSAIDs and hypovolemia. DARIUS resolved.
-Continue IVFs as remains npo.
-Hold chlorthalidone and lisinopril.
Fever -resolved. Unclear etiology. Clinically does not have signs or symptoms of pneumonia. She is not coughing, not short of breath.
Isolated fever noted on 07/30, 100.7 �F. Has been afebrile since.
Clinically doubt sepsis. Leukocytosis noted on presentation and is chronic, she has a diagnosis of polycythemia, myeloproliferative disorder.
She had a 1 view chest x-ray on 07/31 with findings of severe left lower lobe infiltrate. Will check two-view chest x-ray today.
Hydroxyurea Induced Ulcer
-Consult Wound Care. Refusing wound care intermittently. Agreed for wound care changes for today late in Down syndrome. Discussed with RN.
Polycythemia / Thrombocytosis
-Patient previously on hydroxyurea which was stopped early June due to ulcers
-Hold anagrelide and aspirin
-Monitor counts
-Follows with [facility]. - Per outpatient records patient hemoglobin was 10.1 on 07/22/2025
Hyponatremia -POA, resolved.
Hypokalemia -resolved.
LUE edema -resolved. Can cancel Doppler ultrasound.
Obesity due to excess calories
DVT proph: SCDs if able to tolerate in the setting of gastrointestinal bleeding
Code Status: Full Code
Anticipated Discharge: 24 - 48 hours
Subjective/Interval History
-
Date of Service: August 03, 2025
Patient seen and examined, no complaints. Denies cough. Denies shortness of breath.
Objective Data
-
Labs:
Laboratory Results
08/03/25
06:05
WBC 13.3 H
Hgb 8.5 L
Hct 25.6 L
Plt Count 351
Sodium 141
Potassium 3.9
Chloride 114 H
Carbon Dioxide 23
BUN 8
Creatinine 0.7
Glucose 97
Calcium 8.0 L
Vital Signs:
Vital Signs
Temp Pulse Resp BP Pulse Ox
99.0 F 79 16 110/80 97
08/03/25 07:45 08/03/25 07:45 08/03/25 07:45 08/03/25 07:45 08/03/25 07:45
I&O
08/02/25 08/03/25 08/04/25
06:59 06:59 06:59
Intake Total 2049
Balance 2049
Review of Systems
-
History Source: Patient
All other systems: Reviewed and negative
[2025-08-03] MEDS: PROTONIX IV (14:44)
--- NOTE | 2025-08-03 15:15 | CON.PUL ---
Consultation
Consultation Request
Date/Time Consultation Requested: 08/03/25
Date/Time Consultation Performed: 08/03/25
Performing Provider: Gerald
Reason for Consultation: PNA
Medical History
-
History of Present Illness:
Patient is a 70-year-old female with previous history of hypertension, polycythemia vera presenting with generalized weakness, had been taking ibuprofen due to wound on her right lower extremity secondary to hydroxyurea. She had dark stools noted
as well. She had 1 episode of vomiting which was red. Hemoglobin 7.5 which was down from 18.6. She was admitted on 07/29/2025 and underwent endoscopy today demonstrating nonbleeding duodenal ulcers and nonbleeding duodenal diverticulum. She was
noted to have fevers throughout her admission but denies shortness of breath, cough complaints, wheezing. Chest x-ray with development of left lower lobe opacity concerning for pneumonia.
She denies any prior known history of lung disease, lifelong non-smoker. She has had no prior active complaints. She has no difficulty with swallowing.
Past Medical History
Past Medical History: Other (see list below)
Social History
Tobacco: Non-smoker
Alcohol: None
Drug: None
Family History
Family History: Reviewed & Not Pertinent
Allergies / Home Medications
Allergies
Allergy/AdvReac Type Severity Reaction Status Date / Time
hydroxyurea Allergy ulcers Verified 07/29/25 11:38
Home Medications
�Medication �Instructions �Recorded �Confirmed �Last Taken �Type
aspirin 81 mg tablet,delayed 81 mg PO DAILY #0 tabs 08/28/22 07/29/25 07/28/25 Rx
release
anagrelide 1 mg capsule 1 mg PO Q12H Antiplatelet Agent; 07/29/25 07/29/25 07/29/25 History
chlorthalidone 25 mg tablet 25 mg PO DAILY Fluid 07/29/25 07/29/25 07/28/25 History
Retention/Swelling
lisinopril 40 mg tablet 40 mg PO DAILY Blood Pressure 07/29/25 07/29/25 07/28/25 History
Review of Systems
-
History Source: Patient
All other systems: Negative unless noted
Vitals / Labs / Diagnostic Testing
Vital Signs
Temp Pulse Resp BP Pulse Ox
97.8 F 70 14 147/73 100
08/03/25 14:05 08/03/25 14:20 08/03/25 14:20 08/03/25 14:20 08/03/25 14:20
Lab Data
08/03/25 06:05
08/03/25 06:05
Microbiology
07/29/25 12:33 Blood/Venous Blood Culture - Final
No Growth - Final Report
07/29/25 12:33 Blood/Venous Blood Culture - Final
No Growth - Final Report
07/31/25 08:54 Blood/Venous Blood Culture - Preliminary
No Growth in 72 hours- Final report to follow
07/31/25 00:18 Blood/Venous Blood Culture - Preliminary
No Growth in 72 hours- Final report to follow
07/30/25 23:33 Blood/Venous Blood Culture - Preliminary
No Growth in 72 hours- Final report to follow
07/31/25 17:29 Urine Streptococcus pneumoniae Antigen (M - Final
Negative for Streptococcus pneumoniae antigen.
A negative result does not exclude infection with
Streptococcus pneumoniae. Clinical correlation is
recommended.
Diagnostic Testing:
Physical Exam
-
HEENT: Normocephalic, Anicteric and Moist Mucous Membranes
Cardiovascular: S1/S2 and Regular Rhythm
Respiratory: Clear (on R), Rales (on L base) and Non-Labored Respirations
GI: Soft, Non Distended and Non Tender
Neurology: Awake, Alert, Oriented and No Motor Deficits
Skin: Warm, Dry and Good Color
General: Comfortable and Other (NAD)
Assessment
-
Patient is a 70-year-old female with previous history of hypertension, polycythemia vera presenting with generalized weakness, had been taking ibuprofen due to wound on her right lower extremity secondary to hydroxyurea. She had dark stools noted
as well. She had 1 episode of vomiting which was red. Hemoglobin 7.5 which was down from 18.6. She was admitted on 07/29/2025 and underwent endoscopy today demonstrating nonbleeding duodenal ulcers and nonbleeding duodenal diverticulum. She was
noted to have fevers throughout her admission but denies shortness of breath, cough complaints, wheezing. Chest x-ray with development of left lower lobe opacity concerning for pneumonia. We are consulted for evaluation.
Abnormal chest x-ray, left lower lobe opacity
GI bleed, likely upper status post EGD 08/03/2025
Nonbleeding duodenal ulcers
Acute blood loss anemia
Ibuprofen use
Vomiting
Leukocytosis, mild
Hypokalemia
Metabolic acidosis
Conditions present prior to admission
Essential Hypertension
Polycythemia
Thrombocytosis
Plan
No oxygen was needed on admission, currently saturating >90% on RA
Prior history of lung disease is NOT noted --
She denies any prior known history of lung disease, lifelong non-smoker.
She has had no prior active complaints. She has no difficulty with swallowing.
Suspect patient has PNA possibly from aspiration, vomiting at home/procedures planned
She did have mild fever through her admission
CXR/CT obtained indicating LLL opacity that is expanding
Other imaging reviewed--negative prior
Would be appropriate to treat with short course of abx and repeat CXR as OP
She was in agreement
No prior history of cardiomyopathy, HTN noted
Resumed on home meds
Prior ECHO results are reviewed indicating stable findings
Ongoing management for GIB and anemia per GI
PPI ongoing
Diet advancement per team
Can likely discharge in next 24 hours pending further management
Complete abx at home
Repeat CXR in 4 weeks
If not improved, can follow up in our office post imaging
Diagnostic Data
Chest X-Ray: 08/03/25- There are patchy airspace opacities projecting over the left mid/lower lung with an associated small left pleural effusion. This appears slightly increased from prior likely represents worsening pneumonia.
CT Scan:
Echo: 07/30/25- 1. Normal left ventricular systolic function.
2. Estimated ejection fraction 60 to 65%.
3. No significant valve abnormalities.
4. Compared to the previous report 08/25/2022 there is no significant change.
PFT's:
Reports and relevant images were personally reviewed.
Total time spent on this consultation __55__ minutes which includes review of history, physical exam, medications, laboratory data, personal review of imaging, extensive review of outpatient records, discussion with care team and respiratory therapy.
--- NOTE | 2025-08-03 15:46 | CM ---
CM reviewed chart, patient for EGD today. Patient seen bedside with family, reports no needs to CM. Plan remains home no needs. CM will continue to follow for all discharge planning needs.
Plan; home no needs
[2025-08-03] MEDS: PROTONIX 40 MG PO (19:41)
[2025-08-04] MEDS: NSS 1000 IV (04:29)
[2025-08-04 07:40] VITALS: BP 145/70
--- NOTE | 2025-08-04 07:49 | PTCARENOTE ---
IV team in to assess patient's RUE midline. IV team suggesting RUE ultrasound to rule out DVT. This RN notified that RUE with new swelling, especially in the right hand. This RN in to assess patient. Upon assessment, patient denies pain, numbness
and tingling. Mild erythema noted along with +2 right hand edema, + pulses and cap refill <2. Dr. Nunez notified. Per MD, he will be up to assess the patient.
--- NOTE | 2025-08-04 07:59 | VATNOTE ---
Vat rounds: noted bilateral +1-2 edema. Primary RN made aware. Recommended us to r/o dvt. Will continue to monitor closely.
[2025-08-04] MEDS: PROTONIX 40 MG PO (09:01)
[2025-08-04] MEDS: HYDROPHOR 1 APPLIC TOPICAL (09:01)
[2025-08-04 09:11] LABS: Hematocrit 28.0 % (37.0-47.0); Hemoglobin 9.3 g/dL (12.0-16.0); Mean Corp Hgb Conc. 33.2 g/dL (33.0-37.0); Mean Corpuscular Volume 96.6 fL (81.0-99.0); Nucleated Red Blood Cells % 0 %; Platelet Count 470 10^3/uL (130-400); Red Cell Dist. Width 17.6 % (11.5-14.5)
--- NOTE | 2025-08-04 10:16 | W.PN.PUL3 ---
Today's Communication / Plan
-
Stable on RA, no new complaints
Abx to be started and continued at home
Repeat CXR in 4-6 weeks, reviewed with patient
Discharge planning per team
Assessment
-
Patient is a 70-year-old female with previous history of hypertension, polycythemia vera presenting with generalized weakness, had been taking ibuprofen due to wound on her right lower extremity secondary to hydroxyurea. She had dark stools noted
as well. She had 1 episode of vomiting which was red. Hemoglobin 7.5 which was down from 18.6. She was admitted on 07/29/2025 and underwent endoscopy today demonstrating nonbleeding duodenal ulcers and nonbleeding duodenal diverticulum. She was
noted to have fevers throughout her admission but denies shortness of breath, cough complaints, wheezing. Chest x-ray with development of left lower lobe opacity concerning for pneumonia. We are consulted for evaluation.
Abnormal chest x-ray, left lower lobe opacity
GI bleed, likely upper status post EGD 08/03/2025
Nonbleeding duodenal ulcers
Acute blood loss anemia
Ibuprofen use
Vomiting
Leukocytosis, mild
Hypokalemia
Metabolic acidosis
Conditions present prior to admission
Essential Hypertension
Polycythemia
Thrombocytosis
Plan
No oxygen was needed on admission, currently saturating >90% on RA
Prior history of lung disease is NOT noted --
She denies any prior known history of lung disease, lifelong non-smoker.
She has had no prior active complaints. She has no difficulty with swallowing.
Suspect patient has PNA possibly from aspiration, vomiting at home/procedures planned
She did have mild fever through her admission
CXR/CT obtained indicating LLL opacity that is expanding
Other imaging reviewed--negative prior
Would be appropriate to treat with short course of abx and repeat CXR as OP
She was in agreement
This is to be started today by primary team
No prior history of cardiomyopathy, HTN noted
Resumed on home meds
Prior ECHO results are reviewed indicating stable findings
Ongoing management for GIB and anemia per GI
PPI ongoing
Diet advancement per team
Can likely discharge--reviewed plan of care with patient
Complete abx at home
Repeat CXR in 4 weeks
If not improved, can follow up in our office post imaging
Diagnostic Data
Chest X-Ray: 08/03/25- There are patchy airspace opacities projecting over the left mid/lower lung with an associated small left pleural effusion. This appears slightly increased from prior likely represents worsening pneumonia.
CT Scan:
Echo: 07/30/25- 1. Normal left ventricular systolic function.
2. Estimated ejection fraction 60 to 65%.
3. No significant valve abnormalities.
4. Compared to the previous report 08/25/2022 there is no significant change.
PFT's:
Reports and relevant images were personally reviewed.
Total time spent on this consultation __45__ minutes which includes review of history, physical exam, medications, laboratory data, personal review of imaging, extensive review of outpatient records, discussion with care team and respiratory therapy.
Subjective Data
-
Date of Service:
Date of Service: August 04, 2025
Chief Complaint: Pulmonary Follow Up
Subjective:
Denies any new complaints, stable on RA
Wants to go home
Objective Data
Data Reviewed
Vital Signs / I&O / Oxygen:
Vital Signs
Temp Pulse Resp BP Pulse Ox
97.9 F 76 18 145/70 96
08/04/25 07:40 08/04/25 07:40 08/04/25 07:40 08/04/25 07:40 08/04/25 07:40
Intake and Output
08/03/25 08/04/25 08/05/25
06:59 06:59 06:59
Intake Total 2280 / 2280 1879 / 0
Balance 2280 / 2280 1879
SaO2 96
Nasal Cannula flow liters per 97
minute
Physical Exam
General: Comfortable and Other (NAD)
HEENT: Normocephalic, Anicteric and Moist Mucous Membranes
Cardiovascular: S1-S2 and Regular Rhythm
Respiratory: Crackles (LLL) and Non-Labored Respirations
GI: Soft, Non Distended and Non Tender
Neurology: Awake, Alert, Oriented and No Motor Deficits
Skin: Warm, Dry and Good Color
Labs/Micro/Reports
Lab Data
08/04/25 07:30
08/03/25 06:05
Microbiology
07/31/25 08:54 Blood/Venous Blood Culture - Preliminary
No Growth in 4 days- Final report to follow
07/31/25 00:18 Blood/Venous Blood Culture - Preliminary
No Growth in 4 days- Final report to follow
07/30/25 23:33 Blood/Venous Blood Culture - Preliminary
No Growth in 4 days- Final report to follow
07/29/25 12:33 Blood/Venous Blood Culture - Final
No Growth - Final Report
07/29/25 12:33 Blood/Venous Blood Culture - Final
No Growth - Final Report
--- NOTE | 2025-08-04 10:36 | W.PN.GI.CBS2 ---
Today's Communication / Plan
-
Continue pantoprazole 40 mg p.o. twice daily
Assessment / Plan
-
Shayy is a 70-year-old female with a past medical history of hypertension, polycythemia (treated as outpatient with Dr. Lott), hyperlipidemia who presents to the emergency department for evaluation of generalized weakness and dark stools
for the past 2 days following approximately 1 month of daily chronic NSAID use.
Impression:
Upper GI bleed status post EGD 07/30/2025
Duodenal ulcer with visible vessel status status post injection and epi and bipolar cautery, Hemospray
3 nonbleeding duodenal ulcers with no stigmata of bleeding
Repeat EGD 08/03/2025:
- Normal esophagus.
- Z-line regular, 39 cm from the incisors.
- A medium amount of food (residue) in the stomach.
- Non-bleeding duodenal ulcers with no stigmata of bleeding.
- Retained food in the duodenum.
- Non-bleeding duodenal diverticulum.
- No specimens collected.
Acute blood loss anemia
Polycythemia/thrombocytosis
Pneumonia, left lower lobe
Plan:
-Continue pantoprazole 40 mg p.o. twice daily
-Low residue diet
Subjective
Subjective
Date of Service: August 04, 2025
Patient feeling good. Tolerating low residue diet. Had brown bowel movement this morning. Status post repeat EGD on 08/03/2025. Normal esophagus. Z-line regular. Medium amount of food residue in the stomach. Nonbleeding duodenal ulcers with no
stigmata of bleeding. Retained food in stomach. Retained food in duodenum. Nonbleeding duodenal diverticulum. No specimens collected. Patient continues on pantoprazole 40 mg p.o. twice daily. Patient states that she is eating well she feels a
little full but this just started with her current situation. She states prior to this she was not having no problems eating. I did discuss with her the EGD results recommended small frequent meals and to continue low residue at the present point.
If she has any problems to let us know. She was to avoid any aspirin, ibuprofen, NSAIDs for at least 5 days.
Objective
Data Reviewed
Laboratory Data:
Laboratory Results
08/04/25 07:30
08/03/25 06:05
Laboratory Results
PT 14.7 Sec (11.4-14.6) H 07/29/25 12:34
INR 1.10 07/29/25 12:34
Total Bilirubin 0.4 mg/dl (0.2-1.3) 07/29/25 12:34
AST 16 U/L (14-36) 07/29/25 12:34
ALT 15 U/L (0-35) 07/29/25 12:34
Alkaline Phosphatase 41 U/L (38-126) 07/29/25 12:34
Vital Signs and I&O:
Vital Signs
Temp Pulse Resp BP Pulse Ox
97.9 F 76 18 145/70 96
08/04/25 07:40 08/04/25 07:40 08/04/25 07:40 08/04/25 07:40 08/04/25 07:40
I&O
08/03/25 08/04/25 08/05/25
06:59 06:59 06:59
Intake Total 2279 / 2279
Balance 2279 / 2279
Physical Exam
Physical Exam
HEENT: Anicteric
Cardiology: Normal Sinus Rhythm
Pulmonary: Clear
GI: Soft, Non Distended, Non Tender and Normal Bowel Sounds
Neuro: Non Focal
--- NOTE | 2025-08-04 11:01 | W.PN.HOSP.TC ---
Addendum entered and electronically signed by Laurent Nunez DO 08/04/25 11:10:
Repeat chest x-ray done 08/03 shows patchy airspace opacities projecting of the left mid/lower lung with an associated small left pleural effusion. Clinically unclear if this represents pneumonia or other etiology. She has no cough or shortness of
breath. Not hypoxic on exertion.
Discussed with pulmonary, empiric trial of antibiotics. Will send a prescription for Augmentin to her pharmacy on discharge. Discussed with patient. Recommend follow-up with PCP and repeat chest x-ray in 3 to 4 weeks for follow-up.
Original Note:
Today's Communication/Plan
-
Discharge
Assessment / Plan
Assessment / Plan
Gen-AAOx3, NAD
HEENT-NC, AT, anicteric, clear oral mm
Neck-supple
CV-reg, no M, +S1/S2
Lungs-clear B/L
Abd-soft, NT, ND
Ext-mild bilateral upper extremity edema
Musculoskeletal-no cyanosis, clubbing
Skin-warm and dry
Neuro-grossly non-focal
Psych-calm, cooperative
Acute upper gastrointestinal bleeding -likely secondary to NSAID induced peptic ulcer disease. Bleeding resolved.
- Status post endoscopy 07/30 which showed grade a esophagitis. Small amount of residual food in the stomach. Oozing duodenal ulcer with visible vessel. H injected. Treated with bipolar cautery and hemostatic spray applied. 3 nonbleeding
duodenal ulcer with no stigmata of bleeding.
- Continue Protonix twice daily
Tolerating low residue diet.
Underwent repeat endoscopy 08/03, findings of normal esophagus, medium amount of food residue in the stomach, nonbleeding duodenal ulcers with no stigmata of bleeding, nonbleeding duodenal diverticulum. No specimens collected.
Symptomatic Acute Blood Loss Anemia secondary to GI Bleed
Hemoglobin improved to 9.3 today. Has required 3 units PRBC transfusion so far.
- Per outpatient records patient hemoglobin was 10.1 on 07/22/2025
DARIUS - secondary to NSAIDs and hypovolemia. DARIUS resolved.
-Continue IVFs as remains npo.
-Hold chlorthalidone and lisinopril.
Fever -resolved. Unclear etiology. Clinically does not have signs or symptoms of pneumonia. She is not coughing, not short of breath.
Isolated fever noted on 07/30, 100.7 �F. Has been afebrile since.
Clinically doubt sepsis. Leukocytosis noted on presentation and is chronic, she has a diagnosis of polycythemia, myeloproliferative disorder.
She had a 1 view chest x-ray on 07/31 with findings of severe left lower lobe infiltrate. Will check two-view chest x-ray today.
Hydroxyurea Induced Ulcer
-Consult Wound Care. Refusing wound care intermittently. Agreed for wound care changes for today late in Down syndrome. Discussed with RN.
Polycythemia / Thrombocytosis
-Patient previously on hydroxyurea which was stopped early June due to ulcers
-Hold anagrelide and aspirin
-Monitor counts
-Follows with [facility]. - Per outpatient records patient hemoglobin was 10.1 on 07/22/2025
Hyponatremia -POA, resolved.
Hypokalemia -resolved.
Bilateral upper extremity edema -doubt DVT. Patient asymptomatic, denies pain. Offered her Doppler ultrasound but she declined. Will remove midline catheter before discharge. Recommend elevation of arms.
Obesity due to excess calories
DVT proph: SCDs if able to tolerate in the setting of gastrointestinal bleeding
Code Status: Full Code
Dispo -medically stable for discharge today. Outpatient follow-up.
35 minutes spent in discharge process.
Anticipated Discharge: Today
Subjective/Interval History
-
Date of Service: August 04, 2025
Patient seen and examined. No complaints. Asking for discharge.
Objective Data
-
Labs:
Laboratory Results
08/04/25
07:30
WBC 14.8 H
Hgb 9.3 L
Hct 28.0 L
Plt Count 470 H D
Vital Signs:
Vital Signs
Temp Pulse Resp BP Pulse Ox
97.9 F 76 18 145/70 96
08/04/25 07:40 08/04/25 07:40 08/04/25 07:40 08/04/25 07:40 08/04/25 07:40
I&O
08/03/25 08/04/25 08/05/25
06:59 06:59 06:59
Intake Total 2280 / 2280 1879
Balance 2280 / 2280 1879
Review of Systems
-
History Source: Patient
All other systems: Reviewed and negative
--- NOTE | 2025-08-04 11:09 | W.DS.TRANS ---
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
-
Discharge Instructions:
Discharge Diagnosis/Procedures Duodenal ulcers, acute GI bleed, acute blood
loss anemia
Diet Low Residue
Activity As tolerated
Driving Restrictions As prior to admission
Bathing Restrictions None
Blood Work CBC next week with your primary care doctor
Instructions:
Stand-Alone Forms:
Changes to Home Medications: No
Discharge Medications:
DC Medications w/original date entered in [facility]
aspirin 81 mg tablet,delayed release 81 mg PO DAILY #0 tabs 08/28/22
anagrelide 1 mg capsule 1 mg PO Q12H Antiplatelet Agent; 07/29/25
chlorthalidone 25 mg tablet 25 mg PO DAILY Fluid Retention/Swelling 07/29/25
lisinopril 40 mg tablet 40 mg PO DAILY Blood Pressure 07/29/25
amoxicillin 875 mg-potassium clavulanate 125 mg tablet 1 tab PO BID #10 tabs 08/04/25
pantoprazole 40 mg tablet,delayed release 40 mg PO BID #60 tabs 08/04/25
Home Medication Changes
Pending Results: No
[2025-08-04] MEDS: NSS IV (11:17)
--- NOTE | 2025-08-04 12:01 | CM ---
CM reviewed chart, patient seen bedside, for discharge today. CM offered VN to patient, declining at this time, reports she lives with two other adults. Confirms transportation home. IMM verbally reviewed, provided with copy, placed in chart. CM
will continue to follow for all discharge planning needs.
Plan; home no needs, declining VN
--- NOTE | 2025-08-04 13:30 | PTCARENOTE ---
Discharge instructions reviewed with patient including medications, wound care and follow up doctor appointments. Midline to be removed by VAT RN. All belongings accounted for. Patient's ride arriving at 1400.
[2025-08-04 13:42] VITALS: BP 145/81
== END 2025-08-04 14:01 | disposition home or self-care (01) | DRG 377 ==
LOC: 4 WEST ACU 14:31
PROVIDERS: Hospitalist; Internal Medicine Gastroenterology; Nurse Practitioner Family; Physician Assistant; Physician Assistant Medical; ADMITTING PHYSICIAN Hospitalist; ATTENDING PHYSICIAN Hospitalist; CONSULT PHYSICIAN Internal Medicine; CONSULT PHYSICIAN Internal Medicine Gastroenterology; EMERGENCY PHYSICIAN Emergency Medicine; FAMILY PHYSICIAN Internal Medicine
PROC: 30233N1 Transfusion of Nonautologous Red Blood Cells into Peripheral Vein, Percutaneous Approach (ICD-10-PCS; 2025-07-29)
PROC: 0W3P8ZZ Control Bleeding in Gastrointestinal Tract, Via Natural or Artificial Opening Endoscopic (ICD-10-PCS; 2025-07-30)
PROC: XW0G886 Introduction of Mineral-based Topical Hemostatic Agent into Upper GI, Via Natural or Artificial Opening Endoscopic, New Technology Group 6 (ICD-10-PCS; 2025-07-30)
PROC: 0DJ08ZZ Inspection of Upper Intestinal Tract, Via Natural or Artificial Opening Endoscopic (ICD-10-PCS; 2025-08-03)
DX: K26.4 Chronic or unspecified duodenal ulcer with hemorrhage (principal); A41.9 Sepsis, unspecified organism; J18.9 Pneumonia, unspecified organism; D62 Acute posthemorrhagic anemia; L97.919 Non-pressure chronic ulcer of unspecified part of right lower leg with unspecified severity; N17.9 Acute kidney failure, unspecified; E87.20 Acidosis, unspecified; K57.10 Diverticulosis of small intestine without perforation or abscess without bleeding; D45 Polycythemia vera; I10 Essential (primary) hypertension; T39.395A Adverse effect of other nonsteroidal anti-inflammatory drugs [NSAID], initial encounter; D75.839 Thrombocytosis, unspecified; Z79.82 Long term (current) use of aspirin; Z79.1 Long term (current) use of non-steroidal anti-inflammatories (NSAID); K20.90 Esophagitis, unspecified without bleeding; E86.1 Hypovolemia; E78.5 Hyperlipidemia, unspecified; E87.6 Hypokalemia; Z79.899 Other long term (current) drug therapy
CPT/HCPCS: 71045; 71046; 80048; 80053; 81003; 82607; 82728; 82746; 83540; 83550; 83605; 85014; 85018; 85025; 85027; 85610; 86850; 86900; 86901; 86920; 87040; 87811; 87899; 93005; 93306; 96361; 96365; 96366; 99291; P9016

== ENCOUNTER 2025-08-18 18:05 | Inpatient (IN) | payer MEDICARE, SELFPAY ==
[2025-08-18] VITALS (8 sets, daily range): BP systolic 85–130; BP diastolic 51–67; BMI 27.7; BMI 27.3
[2025-08-18 15:10] LABS: Hematocrit 43.6 % (37.0-47.0); Hemoglobin 14.5 g/dL (12.0-16.0); Mean Corp Hgb Conc. 33.3 g/dL (33.0-37.0); Mean Corpuscular Volume 89.2 fL (81.0-99.0); Nucleated Red Blood Cells % 0 %; Platelet Count 176 10^3/uL (130-400); Red Cell Dist. Width 17.2 % (11.5-14.5)
--- NOTE | 2025-08-18 15:25 | ED.GENMED ---
History of Present Illness
<DO Micheal Monae Last Filed: 08/18/25 16:38>
General
Chief Complaint: Abdominal Symptoms
Time Seen by Provider: 08/18/25 15:02
<Luciano Escoto PA-C - Last Filed: 08/18/25 19:02>
History of Present Illness
History of Present Illness:
70-year-old female with recent history of duodenal ulcer requiring transfusions and EGD (admitted to hospital earlier this month) presents for evaluation of intractable nausea vomiting and diarrhea for the past week. She is reporting progressive
weakness and fatigue. Denies any abdominal pain. No melanotic or bloody stools. Denies any fevers or chills.
Past History
<DO Micheal Monae Last Filed: 08/18/25 16:38>
Past History
ED Past Medical History: None
Social History
Tobacco: Non-smoker
Alcohol: None
Review of Systems
<Luciano Escoto PA-C - Last Filed: 08/18/25 19:02>
Review of Systems
Allergies reviewed?: Yes
All Other Systems: ROS reviewed and negative except as documented in HPI and ROS
Phy Exam
<SYBIL Herr Last Filed: 08/18/25 19:02>
Physical Exam
Physical Exam:
GEN: Ill-appearing, somewhat cyanotic in appearance
HEENT: Oral mucosa moist, no scleral icterus
Cardiac: Tachycardic, regular
Lung: No respiratory distress, no tachypnea, lungs clear
Abdomen: Soft, grossly nontender
MSK: No gross deformity or injuries
Skin: Good color, no pallor or jaundice, no rashes
Neuro: AO x3, moves all extremities freely
Psych: Calm, cooperative
Course
<Chevy Wetzel DO - Last Filed: 08/18/25 16:38>
Orders/Labs/Results
Orders:
Orders
08/18/25 15:02
Basic Metabolic Panel Urgent
Complete Blood Count/With Diff Urgent
08/18/25 15:20
Pykmd-Evqk-Drdnohi Urgent
Comment: ADD ON
08/18/25 15:26
Type+Screen Urgent
08/18/25 15:41
Lactic Acid Q4H
Comment: CANCEL 2nd LACTIC ACID IF 1st LACTIC ACID IS LESS THAN 2
Blood Culture Q30M
IGNA[facility] Source: Blood/Venous
Specimen Description:
08/18/25 15:59
C DIFF [C difficile Antigen & Toxins] Urgent
[facility] Source: Feces/Stool
Specimen Description:
Stool Culture Urgent
IGNA[facility] Source: Feces/Stool
Specimen Description:
08/18/25 16:03
Blood Culture Q30M
IG[facility] Source: Blood/Venous
Specimen Description:
08/18/25 16:29
Urinalysis Reflex To Culture Urgent
0.9% Sodium Chloride 1000 ml [Nss] 1,000 ml IV BOLUS
08/18/25 17:[address] Non Medication Order As Directed
Physician Order: please complete med rec. thanks
08/18/25 17:39
Admit/Transfer Patient As Directed
Co-Sign Provider:
Level of Care: Inpatient admission
Assign to:: Telemetry
Physician / Group: perez rehman
Diagnosis: darius
Reason for Telemetry: Arrhythmia
Date to Stop Telemetry: 08/21/25
Time to Stop Telemetry: 11:00
Reason for Hospitalization: DARIUS
Expected length of stay greater than two midnights?: Yes
ELOS- Estimated Length of Stay in days: 3
I certify the patient meets the requirements for IP care: Yes
08/18/25 17:40
PRN Pain Medication Management As Directed
May give lesser potent ordered pain med per pt: Yes
preference::
Protocol:: Medication orders for pain may be administered in a
manner that supports deferring to patient preference
when the pt is:
- Requesting an ordered lesser potent pain medication.
Least to most potent pain medications are defined
as: acetaminophen < NSAID < tramadol < opioids
(morphine, oxycodone, hydromorphone).
- Requesting a lesser dose of the same medication IF
ORDERED.
- Requesting a less intrusive route of administration
if both routes are prescribed by the provider (PO <
IV).
08/18/25 17:41
Code Status As Directed
Resuscitation Status: Full Code
08/18/25 17:43
EKG [Electrocardiogram (*1)] Stat
Reason for Study: QTc Monitoring
08/18/25 19:30
Lactic Acid Q4H
Comment: CANCEL 2nd LACTIC ACID IF 1st LACTIC ACID IS LESS THAN 2
08/21/25 11:00
DC Protocol for Telemetry ONCE
Abnormal Lab Results
08/18/25 08/18/25
15:02 15:41
WBC 16.0 H 10^3/uL
(4.8-10.8)
RDW 17.2 H %
(11.5-14.5)
MPV 12.0 H fL
(7.4-10.4)
Abs Immat Gran (auto) 0.3 H 10^3/uL
(0-0.05)
Absolute Neuts (auto) 13.6 H 10^3/uL
(1.4-6.5)
Absolute Lymphs (auto) 0.6 L 10^3/uL
(1.2-3.4)
Absolute Monos (auto) 1.4 H 10^3/uL
(0.1-0.6)
Immature Gran % 1.6 H %
(0-0.5)
Neutrophils % 84.7 H %
(42.2-75.2)
Lymphocytes % 3.9 L %
(20.5-51.1)
Carbon Dioxide 16 L mmol/L
(22-30)
BUN 40 H mg/dl
(7-17)
Creatinine 3.6 H mg/dL
(0.6-1.0)
Glucose 152 H mg/dl
(70-99)
Lactic Acid 2.5 H mmol/L
(0.7-2.0)
08/18/25 15:02
08/18/25 15:02
Vital Signs
Initial and Last Documented VS:
Initial Vital Signs
Temp Pulse Resp BP Pulse Ox
98.5 F 117 18 86/57 100
08/18/25 14:46 08/18/25 14:46 08/18/25 14:46 08/18/25 14:46 08/18/25 14:46
Last Documented Vital Signs
Temp Pulse Resp BP Pulse Ox
98.5 F 102 11 111/59 97
08/18/25 14:46 08/18/25 18:30 08/18/25 18:30 08/18/25 18:00 08/18/25 18:30
<Luciano Escoto PA-C - Last Filed: 08/18/25 19:02>
Orders/Labs/Results
Orders:
Orders
08/18/25 15:02
Basic Metabolic Panel Urgent
Complete Blood Count/With Diff Urgent
08/18/25 15:20
Fnatd-Vikx-Cqynsjg Urgent
Comment: ADD ON
08/18/25 15:26
Type+Screen Urgent
08/18/25 15:41
Lactic Acid Q4H
Comment: CANCEL 2nd LACTIC ACID IF 1st LACTIC ACID IS LESS THAN 2
Blood Culture Q30M
[facility] Source: Blood/Venous
Specimen Description:
08/18/25 15:59
C DIFF [C difficile Antigen & Toxins] Urgent
[facility] Source: Feces/Stool
Specimen Description:
Stool Culture Urgent
[facility] Source: Feces/Stool
Specimen Description:
08/18/25 16:03
Blood Culture Q30M
[facility] Source: Blood/Venous
Specimen Description:
08/18/25 16:29
Urinalysis Reflex To Culture Urgent
0.9% Sodium Chloride 1000 ml [Nss] 1,000 ml IV BOLUS
08/18/25 17:[address] Non Medication Order As Directed
Physician Order: please complete med rec. thanks
08/18/25 17:39
Admit/Transfer Patient As Directed
Co-Sign Provider:
Level of Care: Inpatient admission
Assign to:: Telemetry
Physician / Group: sherie,perez
Diagnosis: darius
Reason for Telemetry: Arrhythmia
Date to Stop Telemetry: 08/21/25
Time to Stop Telemetry: 11:00
Reason for Hospitalization: DARIUS
Expected length of stay greater than two midnights?: Yes
ELOS- Estimated Length of Stay in days: 3
I certify the patient meets the requirements for IP care: Yes
08/18/25 17:40
PRN Pain Medication Management As Directed
May give lesser potent ordered pain med per pt: Yes
preference::
Protocol:: Medication orders for pain may be administered in a
manner that supports deferring to patient preference
when the pt is:
- Requesting an ordered lesser potent pain medication.
Least to most potent pain medications are defined
as: acetaminophen < NSAID < tramadol < opioids
(morphine, oxycodone, hydromorphone).
- Requesting a lesser dose of the same medication IF
ORDERED.
- Requesting a less intrusive route of administration
if both routes are prescribed by the provider (PO <
IV).
08/18/25 17:41
Code Status As Directed
Resuscitation Status: Full Code
08/18/25 17:43
EKG [Electrocardiogram (*1)] Stat
Reason for Study: QTc Monitoring
08/18/25 19:30
Lactic Acid Q4H
Comment: CANCEL 2nd LACTIC ACID IF 1st LACTIC ACID IS LESS THAN 2
08/21/25 11:00
DC Protocol for Telemetry ONCE
Abnormal Lab Results
08/18/25 08/18/25
15:02 15:41
WBC 16.0 H 10^3/uL
(4.8-10.8)
RDW 17.2 H %
(11.5-14.5)
MPV 12.0 H fL
(7.4-10.4)
Abs Immat Gran (auto) 0.3 H 10^3/uL
(0-0.05)
Absolute Neuts (auto) 13.6 H 10^3/uL
(1.4-6.5)
Absolute Lymphs (auto) 0.6 L 10^3/uL
(1.2-3.4)
Absolute Monos (auto) 1.4 H 10^3/uL
(0.1-0.6)
Immature Gran % 1.6 H %
(0-0.5)
Neutrophils % 84.7 H %
(42.2-75.2)
Lymphocytes % 3.9 L %
(20.5-51.1)
Carbon Dioxide 16 L mmol/L
(22-30)
BUN 40 H mg/dl
(7-17)
Creatinine 3.6 H mg/dL
(0.6-1.0)
Glucose 152 H mg/dl
(70-99)
Lactic Acid 2.5 H mmol/L
(0.7-2.0)
08/18/25 15:02
08/18/25 15:02
Vital Signs
Initial and Last Documented VS:
Initial Vital Signs
Temp Pulse Resp BP Pulse Ox
98.5 F 117 18 86/57 100
08/18/25 14:46 08/18/25 14:46 08/18/25 14:46 08/18/25 14:46 08/18/25 14:46
Last Documented Vital Signs
Temp Pulse Resp BP Pulse Ox
98.5 F 102 11 111/59 97
08/18/25 14:46 08/18/25 18:30 08/18/25 18:30 08/18/25 18:00 08/18/25 18:30
<Luciano Escoto PA-C - Last Filed: 08/18/25 19:02>
MDM/Problems Addressed
MDM/Problems Addressed:
Patient with significant DARIUS which is driving her hypotension and tachycardia most likely due to GI volume loss and lack of p.o. intake. She does have leukocytosis however this may be reactive in the setting of CKD duration, she has no clinical
symptoms of infection. No abdominal pain warranting imaging at this time. No evidence of recurrent GI bleed. Will admit for further hydration and management
<Chevy Wetzel DO - Last Filed: 08/18/25 16:38>
*Pulse Oximetry
SaO2: 100
Oxygen Mode of Delivery: Room air
<Luciano Escoto PA-C - Last Filed: 08/18/25 19:02>
*Pulse Oximetry
Patient hypoxic: no
*Critical Care Note
Total Time (30-74mins, 75-104mins- exclusive of procedures): Not Applicable
ED Attending Note
<Chevy Wetzel, DO - Last Filed: 08/18/25 16:38>
ED Attending Note
Patient seen and examined by attending physician: Yes
I performed the substantive portion of visit, reviewed & personally made and approve the management plan that is documented in note by myself or DENNIS.: Yes
ED Attending Note:
I evaluated the patient at bedside. White count is 16,000 and she is hypotensive and tachycardic, her bicarb is only 16 and her creatinine is 3.6 which is acute. Lactic is 2.5. However, she is mentating well as I evaluated her at 4:30 PM.
Additional fluids ordered.
-
Portions of this chart may have been created with voice recognition software.� Occasional wrong word or��sound alike� substitutions may have occurred due to the inherent limitations of voice recognition software.
Discharge Plan
Departure
Patient Disposition: Admit
Date of Disposition: 08/18/25
Time of Disposition: 17:14
Admit to: IMU
Presentation/result/management discussed w/ accepting MD/DO: Hospitalist
Discharge Problem:
DARIUS (acute kidney injury), Acute dehydration, Nausea vomiting and diarrhea
Interventions
Interventions:
*Risk Screen - Suicide Last Done: 08/18/25 14:51
*General Assessment Last Done: 08/18/25 14:51
*Neglect/Abuse Screening Last Done: 08/18/25 14:51
*ED- Fall Risk Assessment Last Done: 08/18/25 14:51
*ED COVID-19 Vaccine History Last Done: 08/18/25 14:51
*ED Influenza Vaccine History Last Done: 08/18/25 14:51
LF-Qnmkeo-Uclsxlbnxn Assessment Last Done: 08/18/25 14:55
[2025-08-18 15:33] LABS: Blood Urea Nitrogen 40 mg/dl (7-17); Calcium 8.8 mg/dl (8.4-10.2); Carbon Dioxide 16 mmol/L (22-30); Chloride 101 mmol/L (98-107); Estimated Creatinine Clearance 14 ml/min; Glucose 152 mg/dl (70-99); Sodium 135 mmol/L (135-145); eGFR 13.03
[2025-08-18 16:11] LABS: ALT (SGPT) 17 U/L (0-35); AST (SGOT) 18 U/L (14-36); Albumin 3.7 g/dl (3.5-5.0); Alkaline Phosphatase 50 U/L (38-126); Total Protein 6.4 g/dl (6.3-8.2)
[2025-08-18] MEDS: NSS 1000 IV (16:41)
--- NOTE | 2025-08-18 17:15 | HPS.HSE ---
Family Physician
-
Family Physician: Ofelia Mistry DO
Chief Complaint
-
n/v/d
History of Present Illness
70-year-old female with recent history of duodenal ulcer, anemia, HTN, Diverticulosis, LE ulcer, HLD, CVA presented to us with n/v/d. patient stated diarrhea since the EGD. patient stated 4-5 loose stools at times its watery. stated vomiting. state
poor appetite. she can drink but not able to eat anything. denied abdominal pain. denied fever, chills, chest pain, sob.denied HAYES, dizzy or syncope. denied dysuria or hematuria. she was sent home on Augmentin upon discharge for pneumonia on 08/05.
upon arrival she was noted dehydrated. she was noted to have DARIUS. fluids in the ER. stool for culture, cdiff and blood sent from ER
Medical History
Past Medical History
Past Medical History: Reports Other
Additional Past Medical History:
Duodenal ulcer, anemia, hypertension, diverticulosis right chronic ulcer lower extremity hyperlipidemia, CVA, macrocytosis
Past Surgical History: Reports None
Social History
Tobacco: Non-smoker
Alcohol: None
Drug: None
Living: With Family
Family History
Family History: Not pertinent
Allergies / Home Medications
Allergies reflects when Allergies were last updated in [facility].
Home Medications with original date entered in [facility]
Allergy/Medication List:
Allergies
Allergy/AdvReac Type Severity Reaction Status Date / Time
hydroxyurea Allergy ulcers Verified 07/29/25 11:38
Home Medications
aspirin 81 mg tablet,delayed release 81 mg PO DAILY #0 tabs 08/28/22
anagrelide 1 mg capsule 1 mg PO Q12H Antiplatelet Agent; 07/29/25
chlorthalidone 25 mg tablet 25 mg PO DAILY Fluid Retention/Swelling 07/29/25
lisinopril 40 mg tablet 40 mg PO DAILY Blood Pressure 07/29/25
pantoprazole 40 mg tablet,delayed release 40 mg PO BID #60 tabs 08/04/25
Review of Systems
-
Constitutional: Reports No Symptoms
EENT: Reports No Symptoms
Respiratory: Reports No Symptoms
Cardiac: Reports No Symptoms
Abdomen/GI: Reports Nausea, Vomiting and Diarrhea
: Reports No Symptoms
Musculoskeletal: Reports No Symptoms
Skin: Reports No Symptoms
Neurological: Reports No Symptoms
Endocrine: Reports No Symptoms
Hematologic/Lymphatic: Reports No Symptoms
Psych: Reports No Symptoms
Physical Exam
Vital Signs
Vital Signs
Temp Pulse Resp BP Pulse Ox
98.5 F 115 16 85/51 100
08/18/25 14:46 08/18/25 16:00 08/18/25 15:45 08/18/25 15:00 08/18/25 15:26
Physical Exam
General: Well Developed, Well Nourished and No Apparent Distress
HEENT: NormoCephalic, Moist mucous membranes and Atraumatic
Respiratory: Clear
Cardiac: S1/S2 and Regular Rhythm; No Murmur or Rub
GI: Soft, Non Tender, Non Distended and Normal Bowel Sounds; No Organomegaly
Rectal: Deferred by Provider
Musculoskeletal: No Clubbing, No Cyanosis and No Edema
Skin: No Rash
Neuro: AO x 3 and Nonfocal/grossly intact
Psych: Calm
Laboratory Results
-
08/18/25 15:02
08/18/25 15:02
Laboratory Results
Lactic Acid 2.5 mmol/L (0.7-2.0) H 08/18/25 15:41
Total Bilirubin 0.7 mg/dl (0.2-1.3) 08/18/25 15:20
AST 18 U/L (14-36) 08/18/25 15:20
ALT 17 U/L (0-35) 08/18/25 15:20
Alkaline Phosphatase 50 U/L (38-126) 08/18/25 15:20
Data Reviewed
-
Lab Data: Labs Reviewed by me
Impression/Plan
-
#acute kidney injury secondary to N/V/D concern for C diff due to recent abx use
# Non-anion gap metabolic lactic acidosis secondary to dehydration
-CO2 16, wbc 16.0
-cr 3.6, fluids continued
-Hold lisinopril, chlorthalidone
-BMP in am
- Obtain C. difficile, stool cultures and blood cultures
# Hypotension/tachycardia secondary to dehydration
- Fluids continued
- Continue to monitor blood pressure
# History of recent GI bleeding likely due to NSAID induced peptic ulcer disease
- Recent EGD with impression of grade a esophagitis. Small amount of residual food in the stomach. Oozing duodenal ulcer with visible vessel. H injected. Treated with bipolar cautery and hemostatic spray applied. 3 nonbleeding duodenal ulcer
with no stigmata of bleeding.
-Underwent repeat endoscopy 08/03, findings of normal esophagus, medium amount of food residue in the stomach, nonbleeding duodenal ulcers with no stigmata of bleeding, nonbleeding duodenal diverticulum. No specimens collected.\\
-ppi continued
# History of polycythemia/thrombocythemia
- Anagrelide held
# History of CVA
- Aspirin held
#right LE ulcer
-wc consulted
# DVT prophylaxis
- SCDs
CODE STATUS#
- Full code
--- NOTE | 2025-08-18 17:16 | W.PN.UPDATE ---
Update Note
Progress Note Update
This note serves as an addendum to the H&P by warehouse production worker Kaitlin Cordon
HPI�
70F HX Polycythemia / Thrombocytosis, recent GIB due to DU requiring transfusions and EGD (admitted to hospital) seen at ER:
- for evaluation of intractable nausea vomiting and diarrhea for the past week.
- reporting progressive weakness and fatigue.
ROS
Denies any abdominal pain. No melanotic or bloody stools. Denies any fevers or chills.
PHX; see above
Relevant VS
Temp Pulse Resp BP Pulse Ox
98.5 F 115 16 85/51 100
08/18/25 14:46 08/18/25 16:00 08/18/25 15:45 08/18/25 15:00 08/18/25 15:26
PE
Gen: ill lookiing
HEENT: not icteric
Neck: supple
Lungs: CTA
Cor: RRR
Abdomen:�soft , NT
RPG PROGRAMMER ANALYST: NFND
MS: R Hilda , dressed up , tiny dry ulcer at Rt Great toe
Relevant Data
08/03/25 08/04/25
08/18/25
WBC 14.8 H 16.0 H
Hgb 9.3 L 14.5
Plt Count 470 H D 176
Sodium 141 135
Chloride 101
Carbon Dioxide 23 16 L
BUN 8 40 H
Creatinine 0.7 3.6 H
eGFR > 60.00 13.03
Glucose 152 H
Lactic Acid 2.5
Last hospitalist admission:DATE OF ADMISSION: 07/29/2025 - DATE OF DISCHARGE: 08/04/2025
DISCHARGE DIAGNOSES:
1. Acute upper gastrointestinal bleed due to nonsteroidal anti-inflammatory drugs-induced duodenal ulcers.
2. Symptomatic acute blood loss anemia due to gastrointestinal bleed.
3. Acute kidney injury.
4. Presumed left-sided community-acquired pneumonia.
5. Right leg hydroxyurea-induced ulcer.
6. Polycythemia vera.
7. Hyponatremia.
8. Hypokalemia.
ASSESSMENT & PLAN
Pending Rx reconciliation
DARIUS - prerenal origin associated acute GI loss form GE like symptoms with with N/V /D
- Metabolic acidosis
- ABx associated diarrhea vs CDAD
- Recently DC'd om Augmentin for PNA
- Stool for C Diff, Rota virus , stool for Cx
- LR IVF s/p 2 L NS at ER
- Hold chlorthalidone and lisinopril
- Trend Creat in AM
- If no clinical progress in Cr after 24 Hrs, to consider Renal consult
HX diagnosis of polycythemia, myeloproliferative disorder.
Polycythemia / Thrombocytosis
-Patient previously on hydroxyurea which was stopped early June due to ulcers
-Hold anagrelide and aspirin
-Monitor counts
-Follows with [facility].
Hydroxyurea Induced Ulcer @ [facility]
- Refusing wound care intermittently on last admission
- Consult Wound Care.
Obesity due to excess calories
DVT Px: SCD
Full code
IP TLM
--- NOTE | 2025-08-18 18:23 | EDCM ---
CM reviewed chart and met with pt bedside in ED. Lives with RANDY Harrington in one story home, [address].
Independent in ADLs, personal care and ambulation at baseline. No assistive devices. Has non healing wound R leg, she is not following up with wound care center, was seen by wound care during recent admission 07/29-08/04.
Confirms prescription coverage.
No hx VN or SNF,
PCP: Ofelia Mistry
Pharmacy: [facility]
CM will continue to follow for all discharge planning needs.
--- NOTE | 2025-08-18 20:00 | PTCARENOTE ---
Patient arrived to [facility] [address] from ED. Patient pulled over from stretcher to bed. Patient AAOx3. Patient oriented to room, call chicas within reach, bed in lowest position. Patient refused skin assessment to R LE and pneumatic compression sleeves. Patient
educated on importance of both. Patient vomiting and having diarrhea. Patient offered PRN Zofran. Patient refused. Will continue to monitor.
--- NOTE | 2025-08-18 20:18 | PTCARENOTE ---
[facility]- Admissin assessment completed remotely via phone.
[2025-08-18] MEDS: LR 1000 IV (20:43)
[2025-08-18] MEDS: PROTONIX 40 MG PO (20:45)
[2025-08-19] MEDS: ZOFRAN 4 MG IV (00:55)
[2025-08-19 03:00] VITALS: BP 122/63
[2025-08-19 03:48] VITALS: BMI 27.1
[2025-08-19] MEDS: LR 1000 IV ×2 (06:10→15:03)
[2025-08-19 07:08] LABS: Hematocrit 34.3 % (37.0-47.0); Hemoglobin 11.7 g/dL (12.0-16.0); Mean Corp Hgb Conc. 34.1 g/dL (33.0-37.0); Mean Corpuscular Volume 88.2 fL (81.0-99.0); Platelet Count 118 10^3/uL (130-400); Red Cell Dist. Width 16.9 % (11.5-14.5)
[2025-08-19 07:30] VITALS: BP 136/62
[2025-08-19 07:35] LABS: Blood Urea Nitrogen 43 mg/dl (7-17); Calcium 8.2 mg/dl (8.4-10.2); Carbon Dioxide 14 mmol/L (22-30); Chloride 109 mmol/L (98-107); Estimated Creatinine Clearance 20 ml/min; Glucose 102 mg/dl (70-99); Potassium 2.5 mmol/L (3.5-5.1); Sodium 138 mmol/L (135-145); eGFR 20.18
[2025-08-19] MEDS: PROTONIX 40 MG PO ×2 (07:58→20:51)
[2025-08-19] MEDS: TYLENOL 650 MG PO ×2 (07:59→20:51)
--- NOTE | 2025-08-19 08:12 | W.PN.HOSP.TC ---
Addendum entered and electronically signed by Graeme Rojas MD 08/19/25 23:16:
Attending Addendum-
I saw and evaluated the patient. I reviewed the resident�s note and agree with findings and plan as documented in the resident�s note. Sub: Continues to have diarrhea but less pronounced. Nausea without vomiting. febrile this am. Full 12 point ROS
reviewed and negative except as documented Exam: Vitals reviewed in chart GEN-NAd hert RRR lungs clear abd soft NT ND pos BS LE no edema
Plan:
#Sepsis Secondary to Bacterial Gastroenteritis - salmonella
-pos blood cx 08/18- salmonella sensi pending
-start rocephin ALBERT
-lactate trending down
-cont LR
-repeat blood cx
# NAGMA
-CO2 14, wbc trending down
-Hold lisinopril, chlorthalidone
-BMP in am
# Severe Hypokalemia
-replete aggressively IV and PO k
-check mag
-repeat BMP post repletion
# DARIUS
- prerenal
- improving
- aggressive IVF
- repeat BMP q 12
# History of recent GI bleeding likely due to NSAID induced peptic ulcer disease
- Recent EGD with impression of grade a esophagitis. Small amount of residual food in the stomach. Oozing duodenal ulcer with visible vessel. H injected. Treated with bipolar cautery and hemostatic spray applied. 3 nonbleeding duodenal ulcer
with no stigmata of bleeding.
-Underwent repeat endoscopy 08/03, findings of normal esophagus, medium amount of food residue in the stomach, nonbleeding duodenal ulcers with no stigmata of bleeding, nonbleeding duodenal diverticulum
-cont protonix BID
# History of polycythemia/thrombocythemia
- Anagrelide held
# History of CVA
- Aspirin held
#right LE ulcer
-wc consulted
# DVT prophylaxis
- SCDs
CODE STATUS- Full code
ACP
Patient consented to discuss, was alone, time spent explanation of advance directives, changes in health status, patient�s health care wishes if the patient becomes unable to make health decisions, goals of care, code status, and prognosis 'yeah do
everything, why not'- 16 minutes
Time spent coordinating care, review of plan of care with resident, personally reviewed previous records in EMR, med rec, labs, radiology, d/w nursing, total time documented is exclusive of any additional time listed that was spent in advance care
planning discussion -�53 minutes
Original Note:
Today's Communication/Plan
-
Start ceftriaxone
Pending further cultures
Continue IV fluids
Assessment / Plan
Assessment / Plan
Assessment
This is a 70/o female with pmhx of essential hypertension, diverticulosis, hyperlipidemia, history of CVA and recently diagnosed duodenal ulcers who presented to the ED on 08/18 with nausea and vomiting and diarrhea leading to dehydration and DARIUS due
to sepsis secondary to Salmonella
Plan
Sepsis secondary to Salmonella
Dehydration secondary to Nausea, Vomiting, Diarrhea
Acute Kidney Injury secondary to Dehydration
-WBC 16 in the ED with fevers
-Creatinine in the ED 3.6
-Today, WBC improved to 11.1,
-One blood culture positive for Salmonella, pending other cultures/studies
-START ceftriaxone 2g
-Continue Lactated Ringers with flushes to prevent precipitation
-Continue Tylenol PRN for fevers and mild pain
-HOLD Chlorthalidone and Lisinopril
-Will monitor
Hypokalemia
-Potassium today 2.5, no result for ED due to hemolysis
-Ordered oral and IV potassium repletion
-Will recheck BMP after repletion and again in the AM
-Added phosphorous and Magnesium labs to check for other depletions
Anion Gap Metabolic Acidosis
Lactic Acidosis-Resolved
-Patient with lactic acid of 2.5 in the ED, normalized to 1.7
-At time of admission anion gap was 16, current anion gap is 15
-Source of gap is most likely vomiting and diarrhea
-Continue IV fluids
-Continue antibiotics to treat source
History of recent GI Bleed likely secondary to NSAID use
-Recent EGD at prior admission showed grade A esophagitis with 3 non bleeding duodenal ulcers
-Continue PPI
History of Polycythemia/Thrombocythemia
-Known patient of [facility]
-Patient previously taking hydoxyurea but this was stopped in 06/2025 due to ulcers
-HOLD Anagrelide
-Continue to follow CBC
History of CVA
-HOLD Aspirin
Right Lower Extremity Ulcer
-Chronic, secondary to hydoxyurea
-Wound care is following
Anticipated Discharge: 24 - 48 hours
Subjective/Interval History
-
Date of Service: August 19, 2025
Patient was sitting in her bed when I arrived. She had last had an episode of vomiting yesterday while in the ED, with no recurrence since. She is not currently nauseous. She does have a history of peptic ulcer disease due to taking too much NSAIDs.
Overall she feels much better than yesterday, though she continues to have green diarrhea. I asked her when the last episode of diarrhea was, and she stated 'Right now'. She has had no abdominal pain, fevers or chills throughout these events.
Objective Data
-
Labs:
Laboratory Results
08/19/25
06:29
WBC 11.1 H
Hgb 11.7 L
Hct 34.3 L
Plt Count 118 L D
Sodium 138
Potassium 2.5 L*
Chloride 109 H
Carbon Dioxide 14 L*
BUN 43 H
Creatinine 2.5 H
Glucose 102 H
Calcium 8.2 L
Vital Signs:
Vital Signs
Temp Pulse Resp BP Pulse Ox
100.6 F H 93 18 136/62 98
08/19/25 07:30 08/19/25 07:30 08/19/25 07:30 08/19/25 07:30 08/19/25 07:30
I&O
08/18/25 08/19/25 08/20/25
06:59 06:59 06:59
Intake Total 480 / 480
Balance 480 / 480
Review of Systems
-
History Source: Patient
Constitutional: Reports No Appetite; Denies Fever or Chills
Cardiac: Denies Chest Pain
Abdomen/GI: Reports Nausea, Vomiting and Diarrhea; Denies Abdominal Pain, Constipated, Bloody Stools, Black Stools or Hematemesis
Musculoskeletal: Denies NSAID Use
Skin: Reports Sores (Ulcers, right foot); Denies Rash
Neuro: Denies Dizzy, Weakness or Lightheadedness
Physical Exam
-
General: Well Developed, Well Nourished, No Apparent Distress and Comfortable
HEENT: Normocephalic and Atraumatic
Respiratory: Clear to Auscultation
Cardiac: Regular Rhythm and S1/S2
GI: Soft, Nontender, Nondistended and Other (Hyperactive bowel sounds)
Skin: Warm, Dry and Other (Medical bandage in place over right butler)
Neuro: Awake and Alert
Psych: Calm
[2025-08-19] MEDS: KCL 40 MEQ PO (08:27)
[2025-08-19] MEDS: KCL 270 MEQ IV (08:28)
--- NOTE | 2025-08-19 08:30 | WOUNDNOTE ---
[facility] RN note: Patient admitted with DARIUS, poor po, diarrhea. Patient lives with family.
See H&P for complete history.
PMH: duodenal ulcer, anemia, HTN, diverticulitis, HLD, CVA, GI bleed d/t NSAID use, polycythemia thrombocytopenia, RLE ulcers suspected d/t hydroxyurea (stopped prior to last admission).
Wound Location and type/assessment: Patient admitted with: slowly healing RLE, R great toe, L 3rd toe and L heel deep dermal ulcers. RLE mostly pink/scabbed. R great to scabbed. L 3rd toe scabbed. L heel pink with yellow fibrin. +Palpable pedal
pulses. Trace-+1 RLE edema. Trace LLE edema. Sacral crease mild MASD. Outer buttocks with blanchable red skin from bedpan use.
Appetite: fair.
Pressure redistribution devices in place: [employer] Accumax. Patient turns self in bed.
Plan: RLE, L heel dressings changed. Francesca care given. Underpads changed. Heels off bed with pillow and air chair cushion. R knee high Bimal wrap applied. Patient tolerated well.
Will confirm orders with hospitalist and update nurse.
Updated care plan and will follow as needed. Patient declined VN. She stated she saw [facility] once. She declined VN. She stated she can do her own wound care. Suggested she follow up at [facility].
Note to case management requested for discharge: VN if she agrees.
Recommend follow up at wound care center upon discharge.
--- NOTE | 2025-08-19 09:49 | WOUNDNOTE ---
R CALF (POSTERIOR0
--- NOTE | 2025-08-19 09:50 | WOUNDNOTE ---
R CALF/ANKLE (MEDIAL)
--- NOTE | 2025-08-19 09:50 | WOUNDNOTE ---
L 3RD TOE
--- NOTE | 2025-08-19 09:51 | WOUNDNOTE ---
L BUTTOCKS (BLANCHABLE RED)
--- NOTE | 2025-08-19 09:51 | WOUNDNOTE ---
L HEEL/R ANKLE (POSTERIOR)
[2025-08-19 12:08] LABS: Magnesium 1.8 mg/dl (1.6-2.3)
[2025-08-19] MEDS: ROCEPHIN 2000 MG IV (12:23)
[2025-08-19] MEDS: FLUSH (NSS) 1 FLUSH IV ×2 (12:24)
[2025-08-19] MEDS: STERILE WATER FOR INJECTION 20 ML IV (12:24)
[2025-08-19] MEDS: FLUSH (NSS) IV (12:31)
--- NOTE | 2025-08-19 13:09 | CM ---
Patient seen at bedside
CM consult completed-Advanced Directives information given to patient
c-diff lab pending
PLAN: tbd, CM to continue to follow for needs
[2025-08-19 13:29] LABS: Urine Character Slightly Cloudy (Clear)
[2025-08-19 14:52] LABS: Urine Squamous Cell >30 /LPF (Few); Urine White Cell 21-25 /HPF (0-5)
[2025-08-19 14:54] LABS: Urine Red Blood Cell 0-2 /HPF (0-2)
[2025-08-19 16:00] VITALS: BP 125/74
[2025-08-19 19:30] VITALS: BP 136/65
[2025-08-19 19:40] LABS: Blood Urea Nitrogen 39 mg/dl (7-17); Calcium 8.6 mg/dl (8.4-10.2); Carbon Dioxide 18 mmol/L (22-30); Chloride 113 mmol/L (98-107); Estimated Creatinine Clearance 24 ml/min; Glucose 103 mg/dl (70-99); Potassium 3.4 mmol/L (3.5-5.1); Sodium 140 mmol/L (135-145); eGFR 26.38
[2025-08-19 23:41] VITALS: BP 120/71
[2025-08-20 03:58] VITALS: BP 115/65
[2025-08-20 07:21] LABS: Hematocrit 33.7 % (37.0-47.0); Hemoglobin 11.3 g/dL (12.0-16.0); Mean Corp Hgb Conc. 33.5 g/dL (33.0-37.0); Mean Corpuscular Volume 89.2 fL (81.0-99.0); Platelet Count 103 10^3/uL (130-400); Red Cell Dist. Width 16.5 % (11.5-14.5)
[2025-08-20 07:35] LABS: Blood Urea Nitrogen 34 mg/dl (7-17); Calcium 8.7 mg/dl (8.4-10.2); Carbon Dioxide 17 mmol/L (22-30); Chloride 111 mmol/L (98-107); Estimated Creatinine Clearance 33 ml/min; Glucose 83 mg/dl (70-99); Potassium 2.9 mmol/L (3.5-5.1); Sodium 139 mmol/L (135-145); eGFR 37.26
[2025-08-20 07:37] VITALS: BP 146/81
--- NOTE | 2025-08-20 07:47 | W.PN.HOSP.TC ---
Addendum entered and electronically signed by Graeme Rojas MD 08/20/25 21:24:
Attending Addendum-
I saw and evaluated the patient. I reviewed the resident�s note and agree with findings and plan as documented in the resident�s note. Sub: seen with partner present. [facility] less diarrhea. continued nausea. denies vomiting. afebrile. Full 12 point
ROS reviewed and negative except as documented Exam: Vitals reviewed in chart GEN-NAd hert RRR lungs clear abd soft NT ND pos BS LE no edema
Plan:
#Sepsis Secondary to Bacterial Gastroenteritis - salmonella bacteremia
-08/18-11/20 pos blood cx- salmonella sensi pending
-cont rocephin #2
-leukocytosis resolved
-cont LR
-repeat blood cx 08/19-NGTD, repeat 08/20
-c/s ID for eval
# NAGMA
-Hold lisinopril, chlorthalidone
-cont LR
-BMP in am
# Hypokalemia
-replete aggressively
-check mag
-repeat BMP
# DARIUS
- prerenal
- resolving
- cont LR
- repeat BMP in am
# History of recent GI bleeding likely due to NSAID induced peptic ulcer disease
- Recent EGD with impression of grade a esophagitis. Small amount of residual food in the stomach. Oozing duodenal ulcer with visible vessel. H injected. Treated with bipolar cautery and hemostatic spray applied. 3 nonbleeding duodenal ulcer
with no stigmata of bleeding.
-Underwent repeat endoscopy 08/03, findings of normal esophagus, medium amount of food residue in the stomach, nonbleeding duodenal ulcers with no stigmata of bleeding, nonbleeding duodenal diverticulum
-cont protonix BID
# History of polycythemia/thrombocythemia
- Anagrelide held
# History of CVA
- Aspirin held
#right LE ulcer
-wc consulted
# DVT prophylaxis
- SCDs
CODE STATUS- Full code
Time spent coordinating care, review of plan of care with resident, personally reviewed records in EMR, med rec, consults, notes, labs, radiology, d/w nursing � 52mins
Original Note:
Today's Communication/Plan
-
Continue antibiotics
ID consult
Continue IV fluids
Assessment / Plan
Assessment / Plan
Assessment
This is a 70/o female with pmhx of essential hypertension, diverticulosis, hyperlipidemia, history of CVA and recently diagnosed duodenal ulcers who presented to the ED on 08/18 with nausea and vomiting and diarrhea leading to dehydration and DARIUS due
to sepsis secondary to Salmonella
Plan
Sepsis secondary to Salmonella
Dehydration secondary to Nausea, Vomiting, Diarrhea
Acute Kidney Injury secondary to Dehydration
-WBC 16 in the ED with fevers
-Creatinine in the ED 3.6
-Today, WBC improved to 9.4, and creatinine improved to 1.5
-One blood culture positive for Salmonella, urine culture preliminarily positive for gram negative bacilli, pending other cultures/studies
-Continue ceftriaxone 2g while cultures are pending
-Continue Lactated Ringers with flushes to prevent precipitation
-Continue Tylenol PRN for fevers and mild pain
-Consulted infectious disease today. Will appreciate their insight into her case
-HOLD Chlorthalidone and Lisinopril
-Will monitor
Hypokalemia
-Potassium 2.5 on 08/19, gallito to 3.4 following 40mEq PO and 40mEq IV repletion, but fell to 2.9 today
-Ordered 40mEq PO and 40mEq IV repletion
-Will recheck BMP after repletion and again in the AM
Anion Gap Metabolic Acidosis, Resolved
Lactic Acidosis-Resolved
-Patient with lactic acid of 2.5 in the ED, normalized to 1.7
-At time of admission anion gap was 16, decreased to 15 on 08/19, and 11 today
-Source of gap is most likely vomiting and diarrhea
-Continue IV fluids
-Continue antibiotics to treat source
History of recent GI Bleed likely secondary to NSAID use
-Recent EGD at prior admission showed grade A esophagitis with 3 non bleeding duodenal ulcers
-Continue PPI
History of Polycythemia/Thrombocythemia
-Known patient of [facility]
-Patient previously taking hydoxyurea but this was stopped in 06/2025 due to ulcers
-HOLD Anagrelide
-Continue to follow CBC
History of CVA
-HOLD Aspirin
Right Lower Extremity Ulcer
-Chronic, secondary to hydoxyurea
-Wound care is following
Anticipated Discharge: 24 - 48 hours
Subjective/Interval History
-
Date of Service: August 20, 2025
Patient reports doing well today, though she continues to experience 4-5 episodes of diarrhea each day and is incontinent of the bowel and bladder. She does not currently have any nausea, vomiting, or abdominal pain. Her last episode of vomiting was
in the ED. She still feels weak, unchanged from yesterday.
Objective Data
-
Labs:
Laboratory Results
08/20/25
06:11
WBC 9.4
Hgb 11.3 L
Hct 33.7 L
Plt Count 103 L
Sodium 139
Potassium 2.9 L
Chloride 111 H
Carbon Dioxide 17 L
BUN 34 H
Creatinine 1.5 H
Glucose 83
Calcium 8.7
Vital Signs:
Vital Signs
Temp Pulse Resp BP Pulse Ox
98.6 F 87 16 146/81 96
08/20/25 07:37 08/20/25 07:37 08/20/25 07:37 08/20/25 07:37 08/20/25 07:37
I&O
08/19/25 08/20/25 08/21/25
06:59 06:59 06:59
Intake Total 480 / 480 720 / 720
Balance 480 / 480 720 / 720
Review of Systems
-
History Source: Patient
Constitutional: Reports No Appetite and Fatigue
Respiratory: Denies Cough or Trouble Breathing
Cardiac: Denies Chest Pain
Abdomen/GI: Reports Diarrhea; Denies Abdominal Pain, Nausea, Vomiting, Bloody Stools or Black Stools
Skin: Denies Rash
Neuro: Reports Weakness; Denies Dizzy, Headache or Lightheadedness
Physical Exam
-
General: Well Developed, Well Nourished, No Apparent Distress and Comfortable
HEENT: Normocephalic and Atraumatic
Respiratory: Clear to Auscultation
Cardiac: Regular Rhythm and S1/S2
GI: Soft, Nontender and Nondistended
Skin: Warm and Dry
Neuro: Awake, Alert and Oriented
Psych: Calm
[2025-08-20] MEDS: HYDROPHOR 1 APPLIC TOPICAL (08:00)
[2025-08-20] MEDS: PROTONIX 40 MG PO ×2 (08:57→22:33)
[2025-08-20] MEDS: KCL 40 MEQ PO (08:57)
[2025-08-20] MEDS: LR 1000 IV ×3 (08:59→22:32)
[2025-08-20] MEDS: KCL 270 MEQ IV (09:46)
[2025-08-20 10:59] VITALS: BP 134/59
--- NOTE | 2025-08-20 11:57 | CON.ID ---
Consultation
-
Date/Time Consultation Requested: 08/20/25 11:03
Date/Time Consultation Performed: 08/20/25 11:58
Requesting Provider: Dr Laws
Performing Provider: Dr Brawsell
Reason for Consultation: Salmonella Bacteremia
Chief Complaint / Past History
Chief Complaint
nausea, vomiting, diarrhea
History of Present Illness
Ms Preston is a 70 year old female with history of diverticulosis who presented here 08/18 for acute onset of vomiting, poor appetite and liquid stools. She was recently found to have a duodenal ulcer with visible vessel on 07/30 and had repeat EGD
08/03. She describes four to five loose stools a day since the EGD however recently progressed to the liquid stools. No current abdominal pain. She denied fever, chills, chest pain, sob, HAYES, dizzy or syncope. denied dysuria or hematuria Also of
note she had a diagnosis of pneumonia which was attributed to aspiration 08/03.
Since arrival here she has been febrile to 102.3 - now downtrending, bp initially mildly hypotensive - now resolved, wbc 16 on arrivla now 9.4, hgb 11.3, plt 103, K on arrival 2.5 - improved to 3.4 and now again 2.9, cr is improving from 3.6 to 1.5
her baseline is 0.7. UA with 21-25 wbc/hpf and moderate bacteria, urine culture with 80K GNR and mixed migdalia; blood culture with salmonella on preliminary PCR and patient has been started on ceftriaxone.
Past History
Additional Past Medical History:
Duodenal ulcer, anemia, hypertension, diverticulosis right chronic ulcer lower extremity hyperlipidemia, CVA, macrocytosis
Past Surgical History: None
Allergy History:
hydroxyurea Allergy (Verified 07/29/25 11:38)
ulcers
Medications Reviewed: Yes
Social History
Tobacco: Non-Smoker
Alcohol: None
Drug: None
Family History
Family History: Not Pertinent
Review of Systems
Review of Systems
General: Negative Fever or Chills
as per hpi
Vital Signs
Temp Pulse Resp BP Pulse Ox
98.6 F 88 16 134/59 96
08/20/25 10:59 08/20/25 10:59 08/20/25 10:59 08/20/25 10:59 08/20/25 10:59
Physical Exam
Physical Exam
Constitutional: No Acute Distress
Cardiovascular: Regular Rate and S1/S2; Negative Murmur or Rub
Pulmonary: Clear and Symmetric; Negative Wheezes, Rales or Rhonchi
Gastrointestinal: Soft, Non Tender, Non Distended and Normal Bowel Sounds
Skin: Warm and Dry; Negative Rash or Jaundice
Lab / Diagnostic Study Results
08/20/25 06:11
08/20/25 06:11
Abs Immat Gran (auto) 0.3 10^3/uL (0-0.05) H 08/18/25 15:02
Absolute Neuts (auto) 13.6 10^3/uL (1.4-6.5) H 08/18/25 15:02
Absolute Lymphs (auto) 0.6 10^3/uL (1.2-3.4) L 08/18/25 15:02
Absolute Monos (auto) 1.4 10^3/uL (0.1-0.6) H 08/18/25 15:02
Absolute Basos (auto) 0.1 10^3/uL (0-0.2) 08/18/25 15:02
Immature Gran % 1.6 % (0-0.5) H 08/18/25 15:02
Neutrophils % 84.7 % (42.2-75.2) H 08/18/25 15:02
Lymphocytes % 3.9 % (20.5-51.1) L 08/18/25 15:02
Monocytes % 8.9 % (1.7-9.3) 08/18/25 15:02
Eosinophils % 0.1 % (0-6) 08/18/25 15:02
Basophils % 0.8 % (0-2) 08/18/25 15:02
Lactic Acid 1.7 mmol/L (0.7-2.0) 08/18/25 22:29
Ur Squamous Epith Cells >30 /LPF (Few) 08/19/25 13:18
Microbiology Results
Micro:
08/19/25 13:18 Urine Culture - Preliminary
Urine Gram negative bacilli
08/19/25 10:59 Salmonella/Shigella Culture - Preliminary
Feces/Stool Culture in Progress
Campylobacter Culture - Preliminary
Culture in Progress
Shiga Toxin Test - Final
No E. coli Shiga Toxin 1 or 2 detected.
08/18/25 16:03 Blood Culture - Preliminary
Blood/Venous Salmonella species
Gram Stain - Preliminary
08/19/25 18:54 Blood Culture - Pending
Blood/Venous
08/18/25 15:41 Blood Culture - Preliminary
Blood/Venous No Growth in 24 hours- Final report to follow
08/19/25 10:59 C. difficile GDH Antigen & Toxins - Final
Feces/Stool Negative for toxigenic C.difficile
Assessment / Plan
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
- given invasive disease agree with antibiotic treatment
- agree with ceftriaxone for present, awaiting susceptibilities
- repeat blood cultures x2 for clearance
- QTc 489
Possible UTI
- only 80K GNR on the urine culture is generally not consistent with a urinary tract infection, however if isolate is also Salmonella will consider descending infection
- patient does not describe symptoms of UTI, asymptomatic bactiuria also possible
[2025-08-20] MEDS: FLUSH (NSS) 1 FLUSH IV ×2 (13:00→13:30)
[2025-08-20] MEDS: STERILE WATER FOR INJECTION 20 ML IV (13:00)
[2025-08-20] MEDS: ROCEPHIN 2000 MG IV (13:00)
[2025-08-20 15:41] VITALS: BP 129/69
[2025-08-20 17:30] LABS: Blood Urea Nitrogen 27 mg/dl (7-17); Calcium 8.4 mg/dl (8.4-10.2); Carbon Dioxide 16 mmol/L (22-30); Chloride 113 mmol/L (98-107); Estimated Creatinine Clearance 44 ml/min; Glucose 97 mg/dl (70-99); Potassium 3.9 mmol/L (3.5-5.1); Sodium 137 mmol/L (135-145); eGFR 54.06
[2025-08-20 19:56] VITALS: BP 138/76
[2025-08-20 23:00] VITALS: BP 119/71
[2025-08-21 03:00] VITALS: BP 140/70
[2025-08-21 06:49] LABS: Hematocrit 31.1 % (37.0-47.0); Hemoglobin 10.3 g/dL (12.0-16.0); Mean Corp Hgb Conc. 33.1 g/dL (33.0-37.0); Mean Corpuscular Volume 86.4 fL (81.0-99.0); Platelet Count 131 10^3/uL (130-400); Red Cell Dist. Width 16.6 % (11.5-14.5)
[2025-08-21 07:00] VITALS: BP 128/71
--- NOTE | 2025-08-21 07:05 | W.PN.HOSP.TC ---
Addendum entered and electronically signed by Graeme Rojas MD 08/21/25 20:37:
Attending Addendum-
I saw and evaluated the patient. I reviewed the resident�s note and agree with findings and plan as documented in the resident�s note. Sub: d/w nursing. more frequent diarrhea. patient tolerating PO. intermittently nauseous denies vomiting.
afebrile. Full 12 point ROS reviewed and negative except as documented Exam: Vitals reviewed in chart GEN-NAD heart RRR lungs clear abd soft NT ND pos BS LE no edema
Plan:
#Sepsis Secondary to Bacterial Gastroenteritis - salmonella bacteremia
-08/18-11/20 pos blood cx, pos stool studies and pos urine cx- salmonella sensi resulted
-cont Rocephin #3
-leukocytosis resolved
-cont LR as having profuse diarrhea
-repeat blood cx 08/19-NGTD, repeat 08/20-NGTD
-appreciate ID input- transition to Bactrim on DC
# NAGMA
-restart lisinopril, chlorthalidone
-resolving
-cont LR
-BMP in am
# Hypokalemia
-replete aggressively
-repeat BMP
# DARIUS
- resolved
# History of recent GI bleeding likely due to NSAID induced peptic ulcer disease
- Recent EGD with impression of grade a esophagitis. Small amount of residual food in the stomach. Oozing duodenal ulcer with visible vessel. H injected. Treated with bipolar cautery and hemostatic spray applied. 3 nonbleeding duodenal ulcer
with no stigmata of bleeding.
-Underwent repeat endoscopy 08/03, findings of normal esophagus, medium amount of food residue in the stomach, nonbleeding duodenal ulcers with no stigmata of bleeding, nonbleeding duodenal diverticulum
-cont protonix BID
# History of polycythemia/thrombocythemia
- Anagrelide held
# History of CVA
- Aspirin held
#right LE ulcer
-wc consulted
# DVT prophylaxis
- SCDs
CODE STATUS- Full code
Dispo DC home over weekend hopefully
Time spent coordinating care, review of plan of care with resident, personally reviewed records in EMR, med rec, consults, notes, labs, radiology, d/w nursing � 52 mins
Original Note:
Today's Communication/Plan
-
Resume Lisinopril, Chlorthalidone
Continue IV fluids
Continue antibiotics
Assessment / Plan
Assessment / Plan
Assessment
This is a 70/o female with pmhx of essential hypertension, diverticulosis, hyperlipidemia, history of CVA and recently diagnosed duodenal ulcers who presented to the ED on 08/18 with nausea and vomiting and diarrhea leading to dehydration and DARIUS due
to sepsis secondary to Salmonella
Plan
Sepsis secondary to Salmonella
Dehydration secondary to Nausea, Vomiting, Diarrhea
Acute Kidney Injury secondary to Dehydration, resolved
-WBC 16 in the ED with fevers
-Creatinine in the ED 3.6
-Today, WBC remains 9.4, and creatinine has returned to normal
-Blood, urine and stool cultures all positive for Salmonella today
-Continue ceftriaxone 2g
-Continue Lactated Ringers with flushes to prevent precipitation
-Continue Tylenol PRN for fevers and mild pain
-Infectious Disease is following, will appreciate their insight into her case
-Will monitor
Hypokalemia
-Potassium 2.5 on 08/19, 3.1 today despite daily repletion.
-Ordered 40mEq PO
-Will recheck BMP
Anion Gap Metabolic Acidosis, Resolved
Lactic Acidosis-Resolved
-Patient with lactic acid of 2.5 in the ED, normalized to 1.7
-At time of admission anion gap was 16 and has subsequently normalized
-Source of gap is most likely vomiting and diarrhea
-Continue IV fluids
-Continue antibiotics to treat source
Essential Hypertension
-Resume lisinopril and chlorthalidone today as DARIUS has resolved
History of recent GI Bleed likely secondary to NSAID use
-Recent EGD at prior admission showed grade A esophagitis with 3 non bleeding duodenal ulcers
-Continue PPI
History of Polycythemia/Thrombocythemia
-Known patient of [facility]
-Patient previously taking hydoxyurea but this was stopped in 06/2025 due to ulcers
-HOLD Anagrelide, resume aspirin today
-Continue to follow CBC
History of CVA
-HOLD Aspirin
Right Lower Extremity Ulcer
-Chronic, secondary to hydoxyurea
-Wound care is following
Anticipated Discharge: 24 - 48 hours
Subjective/Interval History
-
Date of Service: August 21, 2025
Patient is doing well today. She continues to have green, watery diarrhea, but it is now 3-4 times daily rather than 4-5. At baseline, she goes to the bathroom 2 times per day. She continues to be free of fevers, chills, abdominal pain but continues
to have a poor appetite.
Objective Data
-
Labs:
Laboratory Results
08/21/25
06:05
WBC 9.4
Hgb 10.3 L
Hct 31.1 L
Plt Count 131 D
Sodium Pending
Potassium Pending
Chloride Pending
Carbon Dioxide Pending
BUN Pending
Creatinine Pending
Glucose Pending
Calcium Pending
Vital Signs:
Vital Signs
Temp Pulse Resp BP Pulse Ox
98.9 F 88 16 140/70 100
08/21/25 03:00 08/21/25 03:00 08/21/25 03:00 08/21/25 03:00 08/21/25 03:00
I&O
08/20/25 08/21/25 08/22/25
06:59 06:59 06:59
Intake Total 720 / 720 210 / 210
Balance 720 / 720 210 / 210
Review of Systems
-
History Source: Patient
Constitutional: Reports No Appetite; Denies Fever or Chills
Respiratory: Denies Cough or Trouble Breathing
Cardiac: Denies Chest Pain or Palpitations
Abdomen/GI: Reports Diarrhea; Denies Abdominal Pain or Vomiting
Physical Exam
-
General: Well Developed, Well Nourished, No Apparent Distress and Comfortable
HEENT: Normocephalic and Atraumatic
Respiratory: Clear to Auscultation
Cardiac: Regular Rhythm and S1/S2
GI: Soft, Nontender and Nondistended
Skin: Warm and Dry
Neuro: Awake, Alert and Oriented
Psych: Calm
[2025-08-21 07:24] LABS: Blood Urea Nitrogen 20 mg/dl (7-17); Calcium 8.8 mg/dl (8.4-10.2); Carbon Dioxide 19 mmol/L (22-30); Chloride 111 mmol/L (98-107); Estimated Creatinine Clearance 54 ml/min; Glucose 103 mg/dl (70-99); Potassium 3.1 mmol/L (3.5-5.1); Sodium 137 mmol/L (135-145); eGFR > 60.00
[2025-08-21] MEDS: PROTONIX 40 MG PO ×2 (08:03→20:45)
[2025-08-21] MEDS: HYDROPHOR 1 APPLIC TOPICAL (08:13)
[2025-08-21] MEDS: LR 1000 IV ×2 (08:14→17:04)
[2025-08-21 11:00] VITALS: BP 123/73
[2025-08-21] MEDS: KCL 40 MEQ PO (11:08)
--- NOTE | 2025-08-21 12:47 | W.PN.ID1 ---
Date of Service
Date of Service: August 21, 2025
Today's Communication
- agree with ceftriaxone for present follow blood cultures another day - eventual transition to orals to complete a course for bacteremia
- QTc 489, quinolones relatively contraindicated, plan for bactrim
Assessment / Plan
Gastroenteritis due to Salmonella
Salmonella bacteremia
Salmonella UTI
- agree with ceftriaxone for present follow blood cultures another day - eventual transition to orals to complete a course for bacteremia
- QTc 489, quinolones relatively contraindicated, plan for bactrim
Chief Complaint
-: Other (salmonellosis)
Subjective / Review of Systems
fever resolved
BP stable
no events overnight
poor appetite and diarrhea is ongoing
Vital Signs / Physical Exam
Vital Signs
Vital Signs
Temp Pulse Resp BP Pulse Ox
98.9 F 83 16 123/73 99
08/21/25 11:00 08/21/25 11:00 08/21/25 11:00 08/21/25 11:00 08/21/25 11:00
Physical Exam
Constitutional: No Acute Distress
Cardiovascular: Regular Rate and S1/S2; Negative Murmur or Rub
Pulmonary: Clear and Symmetric; Negative Wheezes or Rales
Gastrointestinal: Soft, Non Tender, Non Distended and Normal Bowel Sounds
Genito-Urinary: Negative Suprapubic Tenderness
Skin: Warm and Dry; Negative Rash or Jaundice
Objective Data
Lab Data
Lab Results
08/21/25 06:05
08/21/25 06:05
Estimated Creat Clear 54 ml/min 08/21/25 06:05
Lactic Acid 1.7 mmol/L (0.7-2.0) 08/18/25 22:29
Total Bilirubin 0.7 mg/dl (0.2-1.3) 08/18/25 15:20
AST 18 U/L (14-36) 08/18/25 15:20
ALT 17 U/L (0-35) 08/18/25 15:20
Alkaline Phosphatase 50 U/L (38-126) 08/18/25 15:20
Most recent labs reviewed.
Urine Culture Final 08/21/25-0839
CC: 80,000 CFU/ML Salmonella species
CC: 40,000 CFU/ML Mixed migdalia
Organism 1 Salmonella species
1. Salmonella species
Zone Size RX
--------- ---
Ciprofloxacin 32 S
1. Salmonella species
M.I.C. RX
--------- ---
Ampicillin <=8 S
Ceftazidime <=1 S
Ceftriaxone <=1 S
Nitrofurantoin-Urine Only <=32 S
Tetracycline <=4 S
Trimethoprim/Sulfamethoxazole <=2/38 S
Micro Results:
08/20/25 12:37 Blood Culture - Preliminary
Blood/Venous No Growth in 24 hours- Final report to follow
08/19/25 13:18 Urine Culture - Final
Urine Salmonella species
08/19/25 10:59 Salmonella/Shigella Culture - Final
Feces/Stool Salmonella species
Campylobacter Culture - Final
No Campylobacter species isolated.
Shiga Toxin Test - Final
No E. coli Shiga Toxin 1 or 2 detected.
08/18/25 16:03 Blood Culture - Preliminary
Blood/Venous Salmonella species
Gram Stain - Preliminary
08/19/25 18:54 Blood Culture - Preliminary
Blood/Venous No Growth in 24 hours- Final report to follow
08/18/25 15:41 Blood Culture - Preliminary
Blood/Venous No Growth in 48 hours- Final report to follow
08/19/25 10:59 C. difficile GDH Antigen & Toxins - Final
Feces/Stool Negative for toxigenic C.difficile
[2025-08-21] MEDS: LOW STRENGTH ASPIRIN 81 MG PO (13:28)
[2025-08-21] MEDS: ROCEPHIN 2000 MG IV (13:28)
[2025-08-21] MEDS: ZESTRIL 40 MG PO (13:28)
[2025-08-21] MEDS: STERILE WATER FOR INJECTION 20 ML IV (13:28)
[2025-08-21] MEDS: FLUSH (NSS) 1 FLUSH IV ×2 (13:31→14:16)
[2025-08-21 15:00] VITALS: BP 124/71
--- NOTE | 2025-08-21 15:37 | CM ---
CM following for discharge planning needs. Pt now with + Salmonella bacteremia; currently on IV rocephin with plan for transition to oral abx at discharge.
Pt was to have followed up with wound care, but has not. Concern for non-complance.
Plan: CM to follow to coordinate all discharge planning needs as identified through hospitalization.
[2025-08-21 19:00] VITALS: BP 111/65
[2025-08-21 23:00] VITALS: BP 143/72
[2025-08-22] VITALS (7 sets, daily range): BP systolic 108–133; BP diastolic 65–76; PULSE 86; O2SAT 99
[2025-08-22] MEDS: LR IV (04:35)
[2025-08-22] MEDS: LR 1000 IV (04:35)
[2025-08-22 08:36] LABS: Blood Urea Nitrogen 13 mg/dl (7-17); Calcium 8.6 mg/dl (8.4-10.2); Carbon Dioxide 21 mmol/L (22-30); Chloride 108 mmol/L (98-107); Estimated Creatinine Clearance 61 ml/min; Glucose 100 mg/dl (70-99); Potassium 3.0 mmol/L (3.5-5.1); Sodium 136 mmol/L (135-145); eGFR > 60.00
[2025-08-22 08:48] LABS: Magnesium 1.6 mg/dl (1.6-2.3)
[2025-08-22 09:20] LABS: Hematocrit 31.7 % (37.0-47.0); Hemoglobin 10.8 g/dL (12.0-16.0); Mean Corp Hgb Conc. 34.1 g/dL (33.0-37.0); Mean Corpuscular Volume 87.1 fL (81.0-99.0); Platelet Count 185 10^3/uL (130-400); Red Cell Dist. Width 16.4 % (11.5-14.5)
[2025-08-22] MEDS: ZESTRIL 40 MG PO (09:21)
[2025-08-22] MEDS: HYDROPHOR 1 APPLIC TOPICAL (09:22)
[2025-08-22] MEDS: LOW STRENGTH ASPIRIN 81 MG PO (09:23)
[2025-08-22] MEDS: PROTONIX 40 MG PO ×2 (09:23→20:29)
--- NOTE | 2025-08-22 11:16 | W.PN.HOSP.TC ---
Today's Communication/Plan
-
Replace potassium
Replace magnesium
Patient continues to have diarrhea continue antibiotics
If electrolytes are stable and patient is better consider discharge tomorrow
Assessment / Plan
Assessment / Plan
70-year-old female with nausea and vomiting. And diarrhea leading to dehydration and DARIUS
Patient did not want me to open the dressing on the right leg. Pictures reviewed. Shallow ulcers around the ankle-just above the ankle noted.
Left heel ulcer dry no discharge
Cardiovascular system S1-S2 appreciated
Chest clear to auscultation
Abdomen soft and nontender
# Gastroenteritis secondary to Salmonella
Salmonella bacteremia and Salmonella UTI
Continue ceftriaxone
# Acute kidney injury secondary to GI losses. Restarted lisinopril/chlorthalidone
# Nongap metabolic acidosis secondary to above
# Hypokalemia-replace K and Mag
# Hypotension secondary to hypovolemia-resolved
# Hypertension-restarted lisinopril and chlorthalidone
# Recent GI bleed secondary to NSAID induced peptic ulcer disease
EGD-esophagitis, oozing duodenal ulcer with visible vessel treated with bipolar cautery and hemostatic spray. 3 nonbleeding duodenal ulcers with no stigmata of bleeding.-Continue PPI
# History of polycythemia and history of thrombocythemia-anagrelide on hold. Hemoglobin 10.3 and platelet count 131
# History of CVA-continue aspirin
# Right lower extremity ulcer/right heel ulcer/deep tissue injury buttocks-continue wound care. Patient able to get out of bed now and use commode
# DVT prophylaxis- Lovenox
# Full code
Part of this note was created using voice recognition system. Occasional wrong word or��sound alike� substitutions may have inadvertently occurred due to the inherent limitations of voice recognition software. If noted kindly bring it to my
attention for correction.
Anticipated Discharge: Within 24 hours
Subjective/Interval History
-
Date of Service: August 22, 2025
Objective Data
-
Labs:
Laboratory Results
08/22/25
07:39
WBC 8.7
Hgb 10.8 L
Hct 31.7 L
Plt Count 185 D
Sodium 136
Potassium 3.0 L
Chloride 108 H
Carbon Dioxide 21 L
BUN 13
Creatinine 0.8
Glucose 100 H
Calcium 8.6
Vital Signs:
Vital Signs
Temp Pulse Resp BP Pulse Ox
97.9 F 84 16 114/65 98
08/22/25 07:30 08/22/25 09:21 08/22/25 07:30 08/22/25 09:21 08/22/25 07:30
I&O
08/21/25 08/22/25 08/23/25
06:59 06:59 06:59
Intake Total 210 / 210 2619
Balance 210 / 210 2619
[2025-08-22] MEDS: KCL 270 MEQ IV (11:43)
[2025-08-22] MEDS: MAGNESIUM SULFATE 50 IV (11:43)
[2025-08-22] MEDS: ROCEPHIN 2000 MG IV (12:40)
[2025-08-22] MEDS: STERILE WATER FOR INJECTION 20 ML IV (12:40)
[2025-08-22] MEDS: FLUSH (NSS) 1 FLUSH IV ×3 (12:42→12:47)
[2025-08-22] MEDS: KCL ELIXIR 40 MEQ PO (13:28)
--- NOTE | 2025-08-22 15:02 | W.PN.ID1 ---
Date of Service
Date of Service: August 22, 2025
Today's Communication
transition to bactrim
Assessment / Plan
Gastroenteritis due to Salmonella
Salmonella bacteremia
Salmonella UTI
- diarrhea continues
- transition to bactrim x 10 day course 08/19-08/28
- QTc 489, quinolones relatively contraindicated
Chief Complaint
-: Other (salmonellosis)
Subjective / Review of Systems
afebrile
bp stable
repeat blood cultures negative
ongoing liquid diarrhea
Vital Signs / Physical Exam
Vital Signs
Vital Signs
Temp Pulse Resp BP Pulse Ox
97.7 F 78 16 117/66 98
08/22/25 12:00 08/22/25 12:00 08/22/25 12:00 08/22/25 12:00 08/22/25 12:00
Physical Exam
Constitutional: No Acute Distress
Cardiovascular: Regular Rate and S1/S2; Negative Murmur or Rub
Pulmonary: Clear and Symmetric; Negative Wheezes or Rales
Gastrointestinal: Soft, Non Tender, Non Distended and Normal Bowel Sounds
Skin: Warm and Dry; Negative Rash or Jaundice
Objective Data
Lab Data
Lab Results
08/22/25 07:39
08/22/25 07:39
Estimated Creat Clear 61 ml/min 08/22/25 07:39
Lactic Acid 1.7 mmol/L (0.7-2.0) 08/18/25 22:29
Total Bilirubin 0.7 mg/dl (0.2-1.3) 08/18/25 15:20
AST 18 U/L (14-36) 08/18/25 15:20
ALT 17 U/L (0-35) 08/18/25 15:20
Alkaline Phosphatase 50 U/L (38-126) 08/18/25 15:20
Most recent labs reviewed.
Micro Results:
08/20/25 12:37 Blood Culture - Preliminary
Blood/Venous No Growth in 48 hours- Final report to follow
08/19/25 18:54 Blood Culture - Preliminary
Blood/Venous No Growth in 48 hours- Final report to follow
08/18/25 15:41 Blood Culture - Preliminary
Blood/Venous No Growth in 72 hours- Final report to follow
08/19/25 13:18 Urine Culture - Final
Urine Salmonella species
08/19/25 10:59 Salmonella/Shigella Culture - Final
Feces/Stool Salmonella species
Campylobacter Culture - Final
No Campylobacter species isolated.
Shiga Toxin Test - Final
No E. coli Shiga Toxin 1 or 2 detected.
08/18/25 16:03 Blood Culture - Preliminary
Blood/Venous Salmonella species
Gram Stain - Preliminary
08/19/25 10:59 C. difficile GDH Antigen & Toxins - Final
Feces/Stool Negative for toxigenic C.difficile
[2025-08-22] MEDS: BACTRIM DS 800 MG/160 MG 1 TABLET PO (20:30)
[2025-08-22] MEDS: VISBIOME 1 CAP PO (21:00)
[2025-08-23 03:47] VITALS: BP 116/64
[2025-08-23 07:30] VITALS: BP 112/74
[2025-08-23 08:01] LABS: Blood Urea Nitrogen 11 mg/dl (7-17); Calcium 8.5 mg/dl (8.4-10.2); Carbon Dioxide 21 mmol/L (22-30); Chloride 107 mmol/L (98-107); Estimated Creatinine Clearance 54 ml/min; Glucose 95 mg/dl (70-99); Potassium 3.6 mmol/L (3.5-5.1); Sodium 136 mmol/L (135-145); eGFR > 60.00
[2025-08-23] MEDS: BACTRIM DS 800 MG/160 MG 1 TABLET PO (08:48)
[2025-08-23] MEDS: ZESTRIL 40 MG PO (08:48)
[2025-08-23] MEDS: PROTONIX 40 MG PO (08:48)
[2025-08-23] MEDS: LOW STRENGTH ASPIRIN 81 MG PO (08:48)
--- NOTE | 2025-08-23 10:06 | W.PN.HOSP.TC ---
Addendum entered and electronically signed by Michael Nguyen MD 08/23/25 13:12:
Seen and examined the patient separately. Agree with plan formulated by resident
70-year-old female with nausea and vomiting. And diarrhea leading to dehydration and DARIUS
Patient did not want me to open the dressing on the right leg. Pictures reviewed. Shallow ulcers around the ankle-just above the ankle noted.
Left heel ulcer dry no discharge
Cardiovascular system S1-S2 appreciated
Chest clear to auscultation
Abdomen soft and nontender
# Gastroenteritis secondary to Salmonella
Salmonella bacteremia and Salmonella UTI
Bactrim for 5 more days at discharge to complete total 10 days
# Acute kidney injury secondary to GI losses. Restarted lisinopril/chlorthalidone
# [place]ong[place] metabolic acidosis secondary to above
# Hypokalemia-resolved. Potassium should correct with Bactrim and lisinopril. Labs to be repeated as outpatient
# Hypotension secondary to hypovolemia-resolved
# Hypertension-restarted lisinopril and chlorthalidone
# Recent GI bleed secondary to NSAID induced peptic ulcer disease
EGD-esophagitis, oozing duodenal ulcer with visible vessel treated with bipolar cautery and hemostatic spray. 3 nonbleeding duodenal ulcers with no stigmata of bleeding.-Continue PPI
# History of polycythemia and history of thrombocythemia-anagrelide on hold. To be resumed as outpatient. hemoglobin 10.3 and platelet count 131
# History of CVA-continue aspirin
# Right lower extremity ulcer/right heel ulcer/deep tissue injury buttocks-continue wound care. Patient able to get out of bed now and use commode
# DVT prophylaxis- Lovenox
# Full code
D/W RN
More than 30 minutes spent in discharge including
Final examination of the patient
Summarizing hospital stay
Instructions for continuing care to all relevant caregivers
Preparation of discharge records, prescriptions, and referral forms
Part of this note was created using voice recognition system. Occasional wrong word or��sound alike� substitutions may have inadvertently occurred due to the inherent limitations of voice recognition software. If noted kindly bring it to my
attention for correction.
Original Note:
Today's Communication/Plan
-
Patient stable for discharge and will be sent home with Bactrim
Assessment / Plan
Assessment / Plan
Assessment:
This is a 70/o female with pmhx of essential hypertension, diverticulosis, hyperlipidemia, history of CVA and recently diagnosed duodenal ulcers who presented to the ED on 08/18 with nausea and vomiting and diarrhea leading to dehydration and DARIUS due
to sepsis secondary to Salmonella
Plan:
Sepsis secondary to Salmonella
Dehydration secondary to Nausea, Vomiting, Diarrhea
Acute Kidney Injury secondary to Dehydration, resolved
-WBC 16 in the ED with fevers
-Creatinine in the ED 3.6
-Today, WBC remains 9.4, and creatinine has returned to normal
-Blood, urine and stool cultures all positive for Salmonella
-Continue Lactated Ringers with flushes to prevent precipitation
-Continue Tylenol PRN for fevers and mild pain
- Appreciate infectious diseases recommendations�patient transitioned to Bactrim
-Diarrhea improving on 08/23/25
Hypokalemia
-Potassium 2.5 on 08/19, 3.1 today despite daily repletion.
-Ordered 40mEq PO
-Will recheck BMP
Anion Gap Metabolic Acidosis, Resolved
Lactic Acidosis-Resolved
-Patient with lactic acid of 2.5 in the ED, normalized to 1.7
-At time of admission anion gap was 16 and has subsequently normalized
-Source of gap is most likely vomiting and diarrhea
-Continue IV fluids
-Continue antibiotics to treat source
Essential Hypertension:
-Continue lisinopril and chlorthalidone
History of recent GI Bleed likely secondary to NSAID use
-Recent EGD at prior admission showed grade A esophagitis with 3 non bleeding duodenal ulcers
-Continue PPI
History of Polycythemia/Thrombocythemia
-Known patient of [facility]
-Patient previously taking hydoxyurea but this was stopped in 06/2025 due to ulcers
-HOLD Anagrelide, resume aspirin today
-Continue to follow CBC
History of CVA
-Continue Aspirin
Right Lower Extremity Ulcer
-Chronic, secondary to hydoxyurea
-Wound care is following
CODE STATUS: Full code
DVT prophylaxis: Lovenox sq
Anticipated Discharge: 24 - 48 hours
Subjective/Interval History
-
Date of Service: August 23, 2025
Met with patient at the bedside. Overall she feels much better and believes that her hospital course is going in the right direction. She has no complaints at the present time. She makes note that the ulcers on her right lower limb are stable but
irritating her. She is appreciative of the wound care team that is tending to her. She states that her diarrhea is improving.
Objective Data
-
Labs:
Laboratory Results
08/23/25
06:38
Sodium 136
Potassium 3.6
Chloride 107
Carbon Dioxide 21 L
BUN 11
Creatinine 0.9
Glucose 95
Calcium 8.5
Vital Signs:
Vital Signs
Temp Pulse Resp BP Pulse Ox
97.8 F 88 16 112/74 96
08/23/25 07:30 08/23/25 07:30 08/23/25 07:30 08/23/25 07:30 08/23/25 07:30
I&O
08/22/25 08/23/25 08/24/25
06:59 06:59 06:59
Intake Total 2619
Balance 2619
Review of Systems
-
History Source: Patient
Constitutional: Denies Fever or Chills
Respiratory: Denies Cough or Trouble Breathing
Cardiac: Denies Chest Pain or Palpitations
Abdomen/GI: Reports Diarrhea (Improving); Denies Abdominal Pain or Vomiting
Neuro: Reports No Symptoms
Endocrine: Reports No Symptoms
Hematologic / Lymphatic: Reports No Symptoms
Physical Exam
-
General: Well Developed, Well Nourished, No Apparent Distress and Comfortable
HEENT: Normocephalic and Atraumatic
Respiratory: Clear to Auscultation
Cardiac: Regular Rhythm and S1/S2
GI: Soft, Nontender and Nondistended
Skin: Warm and Dry
Neuro: Awake, Alert and Oriented
Psych: Calm
--- NOTE | 2025-08-23 10:32 | W.PN.ID1 ---
Date of Service
Date of Service: August 23, 2025
Today's Communication
- diarrhea continues, may persist for up to 10 days
- transition to bactrim x 10 day course 08/19-08/28
- follow up with PCP
Assessment / Plan
Gastroenteritis due to Salmonella
Salmonella bacteremia
Salmonella UTI
- diarrhea continues, may persist for up to 10 days
- transition to bactrim x 10 day course 08/19-08/28
- follow up with PCP
Chief Complaint
-: Other (salmonellosis)
Subjective / Review of Systems
afebrile
bp stable
ongoing liquid stools however less frequent
Vital Signs / Physical Exam
Vital Signs
Vital Signs
Temp Pulse Resp BP Pulse Ox
97.8 F 88 16 112/74 96
08/23/25 07:30 08/23/25 07:30 08/23/25 07:30 08/23/25 07:30 08/23/25 07:30
Physical Exam
Constitutional: No Acute Distress
Cardiovascular: Regular Rate and S1/S2; Negative Murmur or Rub
Pulmonary: Clear and Symmetric; Negative Wheezes or Rales
Gastrointestinal: Soft, Non Tender, Non Distended and Normal Bowel Sounds
Skin: Warm and Dry; Negative Rash or Jaundice
Objective Data
Lab Data
Lab Results
08/22/25 07:39
08/23/25 06:38
Estimated Creat Clear 54 ml/min 08/23/25 06:38
Lactic Acid 1.7 mmol/L (0.7-2.0) 08/18/25 22:29
Total Bilirubin 0.7 mg/dl (0.2-1.3) 08/18/25 15:20
AST 18 U/L (14-36) 08/18/25 15:20
ALT 17 U/L (0-35) 08/18/25 15:20
Alkaline Phosphatase 50 U/L (38-126) 08/18/25 15:20
Most recent labs reviewed.
Micro Results:
08/20/25 12:37 Blood Culture - Preliminary
Blood/Venous No Growth in 48 hours- Final report to follow
08/19/25 18:54 Blood Culture - Preliminary
Blood/Venous No Growth in 72 hours- Final report to follow
08/18/25 15:41 Blood Culture - Preliminary
Blood/Venous No Growth in 4 days- Final report to follow
08/19/25 13:18 Urine Culture - Final
Urine Salmonella species
08/19/25 10:59 Salmonella/Shigella Culture - Final
Feces/Stool Salmonella species
Campylobacter Culture - Final
No Campylobacter species isolated.
Shiga Toxin Test - Final
No E. coli Shiga Toxin 1 or 2 detected.
08/18/25 16:03 Blood Culture - Preliminary
Blood/Venous Salmonella species
Gram Stain - Preliminary
08/19/25 10:59 C. difficile GDH Antigen & Toxins - Final
Feces/Stool Negative for toxigenic C.difficile
[2025-08-23 11:06] LABS: Magnesium 2.0 mg/dl (1.6-2.3)
[2025-08-23 11:30] VITALS: BP 90/57
--- NOTE | 2025-08-23 15:08 | W.DCSUMMARY ---
Discharge Summary
Discharge Data
Date of Admission: 08/18/25
Date of Discharge: 08/23/25
-
Pending Results: No
Hospital Course
Discharging Physician : Dr Nguyen
Disposition : Home
Primary care physician : Ofelia Mistry
Principal Discharge diagnosis : Gastroenteritis secondary to Salmonella and Salmonella bacteremia
Chronic Discharge diagnosis :
Essential hypertension
diverticulosis
hyperlipidemia
history of CVA
Duodenal ulcers
History of polycythemia/thrombocythemia
Right lower extremity ulcer
Hospital Course :
This is a 70/o female with pmhx of essential hypertension, diverticulosis, hyperlipidemia, history of CVA and recently diagnosed duodenal ulcers who presented to the ED on 08/18. She was recently hospitalized here from to 07/29-08/05 and received 3
units of hemoglobin for blood loss anemia and was discharged on antibiotics at discharge due to suspicious CXR suggesting pneumonia in the absence of cough or shortness of breath. She was started on Augmentin at the time of discharge. Since then,
she reported having diarrhea 4-5 times per day which is watery and green in color. She also began to feel nauseous with episodes of vomiting. She had poor appetite. Of note, she did not have any fevers, chills, or abdominal pain.�In the ED, she was
found to be dehydrated. Her hemoglobin was 14.5 and her hematocrit was 43.6, compared to her baseline of a hemoglobin closer to 9 and hematocrit closer to 29. Her WBC was 16, and her Lactic acid was 2.5 She also had an DARIUS with a creatinine of 3.6.
Stool and urine studies were ordered, but were not collected due to patient�s severe incontinence. She was given IV fluids and admitted to the hospital for further management.�
On 08/19, her WBC decreased to 11.1. Her hemoglobin also decreased to 11.7 and her hematocrit to 34.3 as she became more hydrated with IV fluids. Her potassium was low at 2.5, and she was replanted with 40mEq of PO KCl and 40mEq of IV KRiders, after
which her potassium gallito to 3.4. Her anion gap for that day was 15. One of her blood cultures was positive for Salmonella. She was started on 2g Ceftriaxone. By the end of the day, her creatinine had decreased to 2.0, though she did experience a
fever of 102.3. On 08/20 her kidney function had further to 1.5 with IV fluids and her WBC normalized at 9.4. She again required potassium repletion for a potassium of 2.9. She was continued of Ceftiraxone, and infectious disease was consulted. The
following day, her blood, urine and stool cultures all returned positive for Salmonella. Her potassium improved to 3.1 once more requiring repletion, and her WBC and creatinine remained normal.� She was converted from ceftriaxone to Bactrim oral
medication on 08/22 and had a potassium and magnesium repleted. Throughout her course her diarrhea slowly subsided and by 08/23/2025 she was having far fewer episodes of diarrhea and was back at baseline. Patient asked to be discharged as she
believes that she is ready to go home. Patient was recommended to restart her lisinopril and chlorthalidone at discharge. She should have follow-up BMP and CMP with differential within 3 to 4 days following discharge.
The patient has reached maximal benefit from this hospital admission and the patient is appropriate for discharge at the present time. There are no barriers that would impede the patient from being discharged from the hospital at the present time.
The patient should follow-up with their primary care provider within 1 week following discharge and discuss her BMP findings. Patient should follow-up with her oncologist within 3 to 4 days following discharge to discuss CMP results. Patient
recommended to restart her anagrelide only after meeting with her oncologist. Patient should continue to take Bactrim twice a day for 5 more days at discharge to complete a total of 10 days of antibiotic treatment.
Important imaging findings : Not applicable
Procedure findings : Not applicable
Discharge Plan
-
Patient Disposition: Home (Routine Discharge)
Discharge Diagnosis/Procedures: Gastroenteritis secondary to Salmonella
Salmonella bacteremia
Metabolic acidosis
Low potassium-hypokalemia
Hypertension
Polycythemia and thrombocythemia
History of CVA
Lower extremity ulcer
Condition: Good
Diet: No restrictions
Activity: No restrictions
Driving Restrictions: As prior to admission
Bathing Restrictions: None
Blood Work: cbc 08/26/25. BMP 3-4 days
Activity Restrictions/Additional Instructions:
Wound Care Instructions
RLE wounds-clean with Vashe wound cleanser, Aquaphor ointment to surrounding skin, adaptic, alginate, ABD pad, secure with Kerlix, change daily and prn loosened dressing.
L heel wound-clean with Vashe wound cleanser, foam dressing, change sergio 2 days and as needed for drainage.
R great toe and L 3rd toe scabbed areas-clean with saline or Vashe daily, cover with dry gauze prn protection.
Barrier ointment to sacral/coccyx/viviane skin twice a day.
R knee high Bimal wrap as tolerated; may remove at bedtime; reapply every morning.
L knee high Tubigrip as tolerated; may remove at bedtime; reapply every morning.
Elevate heels off bed with pillow and air chair cushion.
Follow up at wound care center call for an appointment.
Hold anagrelide until you talk to Dr. Lott. Get blood work done on 08/26/2025. Results should go to Dr. Lott discussed the results with him prior to resuming anagrelide.
Referrals[facility] [[facility]]
Isreal Lott DO [Active, Hematology / Oncology]
Ofelia Mistry DO [Family Provider, Family Practice] - in less than 1 week
Additional Discharge Medication Instructions: Patient should have a BMP done within 3 to 4 days after discharge -follow-up with primary care provider with results
Patient should take Bactrim 800-160 mg twice daily for 5 days to complete a 10-day course of antibiotics
Prescriptions:
New
sulfamethoxazole-trimethoprim 800-160 mg Tablet
1 tab PO BID Qty: 10 0RF
Continued
aspirin 81 mg Tablet,Delayed Release (Dr/Ec)
81 mg PO DAILY Qty: 0 0RF
chlorthalidone 25 mg Tablet
25 mg PO DAILY
lisinopril 40 mg Tablet
40 mg PO DAILY
pantoprazole 40 mg Tablet,Delayed Release (Dr/Ec)
40 mg PO BID Qty: 60 0RF
Held
anagrelide 1 mg Capsule
1 mg PO Q12H
Hold Instructions: Resume on 08/27/25.
Discharge Orders:
Discharge Patient (As Directed); Ordered 08/23/25
Ordered By: Attila Chase
Discharge Date and Time
Discharge Date/Time: 08/23/25 14:09
Print Language: SINHALA
== END 2025-08-23 14:09 | disposition home or self-care (01) | DRG 871 ==
LOC: 3 WEST ACU 18:05
PROVIDERS: Nurse Practitioner Gerontology; Physician Assistant; Registered Nurse; ADMITTING PHYSICIAN Internal Medicine; ATTENDING PHYSICIAN Hospitalist; EMERGENCY PHYSICIAN Emergency Medicine; FAMILY PHYSICIAN Internal Medicine; OTHER PHYSICIAN Student in an Organized Health Care Education/Training Program
DX: A02.1 Salmonella sepsis (principal); J18.9 Pneumonia, unspecified organism; K26.4 Chronic or unspecified duodenal ulcer with hemorrhage; A02.0 Salmonella enteritis; N17.9 Acute kidney failure, unspecified; E87.20 Acidosis, unspecified; D47.1 Chronic myeloproliferative disease; D62 Acute posthemorrhagic anemia; E87.1 Hypo-osmolality and hyponatremia; L97.919 Non-pressure chronic ulcer of unspecified part of right lower leg with unspecified severity; I10 Essential (primary) hypertension; K57.30 Diverticulosis of large intestine without perforation or abscess without bleeding; E78.5 Hyperlipidemia, unspecified; Z86.73 Personal history of transient ischemic attack (TIA), and cerebral infarction without residual deficits; D75.1 Secondary polycythemia; E86.0 Dehydration; Z79.82 Long term (current) use of aspirin; E87.6 Hypokalemia; I95.9 Hypotension, unspecified; D45 Polycythemia vera; D75.839 Thrombocytosis, unspecified; D75.89 Other specified diseases of blood and blood-forming organs; E66.09 Other obesity due to excess calories; T39.395A Adverse effect of other nonsteroidal anti-inflammatory drugs [NSAID], initial encounter
CPT/HCPCS: 80048; 80076; 81003; 81015; 83605; 83735; 84100; 85025; 85027; 86850; 86900; 86901; 87040; 87045; 87046; 87077; 87086; 87154; 87184; 87186; 87205; 87324; 87427; 87449; 93005; 96360; 97162; 97165; 99284